=== PATIENT | male | born 1950 | race African-American/Black ===

== ENCOUNTER 2017-01-07 01:58 | Emergency (ER) | payer MEDICARE, OTHER ==
[~2017-01-07] VITALS: Ht 170.2 cm; Wt 108.4 kg
[~2017-01-07 01:58] MED LIST: ASPI325T4 PO; ATORVASTATIN CA80 MG PO; CARV25TA PO; CARV3.122 PO; CARV6.252 PO; CRESTOR5 MG PO; EZET10TA3 PO; HYDR25TA9 PO; ISOS60TA2 PO; LISI-334 PO; LISI2.5T PO; METF10002 PO; MOME17SP NS; MONT10TA6 PO; PRED20TA PO; RANO500T2 PO; WARF2.5T PO; WARF5TAB PO
--- NOTE | 2017-01-07 02:57 | PHYS DOC ---
Past Medical History Past Medical History: Asthma, CAD, Diabetes-Type II, High Cholesterol, Hypertension, Stroke, Other Additional Past Medical Histor: RIGHT SIDED RESIDUAL Past Surgical History: Knee Replacement, Other Additional Past Surgical Histo: RIGHT KNEE, cardiac stents placed Alcohol Use: None Drug Use: None Adult General Chief Complaint Chief Complaint: FOREIGNBODY EAR HPI HPI Patient is a 66 year old male who presents with concern of a bedbug in his left ear. He feels crawling in his left ear. This has been present tonight. He denies ear pain, tinnitus, headache, numbness, tingling, weakness, dizziness. Review of Systems Review of Systems Constitutional: Denies fever or chills [] Eyes: Denies change in visual acuity, redness, or eye pain [] HENT: Denies nasal congestion or sore throat [] Respiratory: Denies cough or shortness of breath [] Cardiovascular: No additional information not addressed in HPI [] GI: Denies abdominal pain, nausea, vomiting, bloody stools or diarrhea [] : Denies dysuria or hematuria [] Musculoskeletal: Denies back pain or joint pain [] Integument: Denies rash or skin lesions [] Neurologic: Denies headache, focal weakness or sensory changes [] Endocrine: Denies polyuria or polydipsia [] Current Medications Current Medications Current Medications Medications (Trade) Dose Ordered Sig/Jeannine Start Time Stop Time Status Last Admin Dose Admin Lidocaine HCl (Xylocaine-Mpf 1% Vial) 2 ml 1X ONCE 01/07/17 03:00 01/07/17 03:01 01/07/17 02:29 2 ML Allergies Allergies Allergies Coded Allergies Type Severity Reaction Last Updated Verified No Known Drug Allergies 08/10/14 No Physical Exam Physical Exam Constitutional: Well developed, well nourished, no acute distress, non-toxic appearance. [] HENT: Normocephalic, atraumatic, bilateral TMs normal, oropharynx moist, nose normal. Left ear canal has visible small brown bug [] Eyes: PERRLA, EOMI. [] Neck: Normal range of motion, supple. [] Cardiovascular:Heart rate regular rhythm [] Lungs & Thorax: Bilateral breath sounds clear to auscultation [] Abdomen: soft, no tenderness. [] Skin: Warm, dry, no erythema, no rash. [] Back: Normal range of motion. [] Extremities: ROM intact, ambulatory with a steady gait. [] Neurologic: Alert and oriented X 3, normal motor function, normal sensory function, no focal deficits noted. [] Psychologic: Affect normal, judgement normal, mood normal. [] Current Patient Data Vital Signs Vital Signs Date Time Temp Pulse Resp B/P Pulse Ox O2 Delivery O2 Flow Rate FiO2 01/07/17 02:14 97.6 86 18 99 Room Air 97.6 Course & Med Decision Making Course & Med Decision Making Foreign body removed from left ear with ease. Patient tolerated well. No bleeding or trauma occurred. Return precautions given. He understands and agrees with plan. Dragon Disclaimer Dragon Disclaimer This electronic medical record was generated, in whole or in part, using a voice recognition dictation system. Foreign Body Removal Procedure Indication: Foreign body left ear Procedure: Lidocaine was placed in the left ear canal. The foreign body was then removed with ease by alligator forceps. The patient tolerated the procedure well. Complications: none Departure Departure Impression: Primary Impression: Foreign body in left ear, initial encounter Disposition: 01 HOME, SELF-CARE Condition: STABLE Referrals: AMINATA AYALA MD (PCP) Patient Instructions: Ear Foreign Body, [id number] Additional Instructions: Follow-up with your primary care doctor. Return for any concerns. Jeri KIM MD Jan 07, 2017 02:57
[2017-01-07] MEDS ORDERED: LIDOCAINE 1% PF 2 ML VIAL. INJ ONE (03:00)
[2017-01-07 03:20] VITALS: BP 149/93
== END 2017-01-07 03:25 | disposition home or self-care (01) ==
LOC: ER 01:58
DX: T16.2XXA Foreign body in left ear, initial encounter (principal); J45.909 Unspecified asthma, uncomplicated; I25.10 Atherosclerotic heart disease of native coronary artery without angina pectoris; E11.9 Type 2 diabetes mellitus without complications; E78.00 Pure hypercholesterolemia, unspecified; I10 Essential (primary) hypertension; Z86.73 Personal history of transient ischemic attack (TIA), and cerebral infarction without residual deficits; W45.8XXA Other foreign body or object entering through skin, initial encounter; Y93.89 Activity, other specified; Y92.89 Other specified places as the place of occurrence of the external cause; Y99.8 Other external cause status
CPT/HCPCS: 69200; 99284-25

== ENCOUNTER → 2017-04-14 | Outpatient (CLI) | payer BC ==
[~2017-04-14] MED LIST changes: +CONTRAST GIVEN MC PRN; +IOHEXOL 240 MG/ML 50ML VIAL. PO ONE; +IOHEXOL 300 MG/ML 75 ML VIAL IV ONE; +METF-620 PO; -METF10002 PO; +WARF-78 PO; -WARF2.5T PO; +WARF2.5T83 PO; -WARF5TAB PO
[2017-04-14 12:10] LABS: CREATININE 1.5 mg/dL (0.7-1.3)
--- NOTE | 2017-04-14 14:06 | RAD ---
Examination: CT of the abdomen pelvis with oral and IV contrast History: History of right-sided abdominal pain for 2 month Comparison: None available Technique: Axial CT images of the abdomen is performed with oral and IV contrast Coronal and sagittal reformats were performed PQRS Compliance Statement: One or more of the following individualized dose reduction techniques were utilized for this examination: 1. Automated exposure control 2. Adjustment of the mA and/or kV according to patient size 3. Use of iterative reconstruction technique Findings: Partially visualized right lung base airspace opacities likely atelectasis or infiltrate. No evidence of free air noted under the hemidiaphragm. No evidence of free air identified in the abdomen. Partially visualized coronary artery calcifications identified. The visualized liver, spleen, adrenals grossly appears unremarkable. The gallbladder is mildly distended. The visualized pancreas grossly appears unremarkable. The stomach is minimally distended. The small bowel is nondilated. The appendix is normal. Feces and gas noted throughout the colon. Multiple sigmoid colon diverticulosis identified. Urinary bladder is mildly distended. The bilateral kidneys enhance symmetrically. Cystic structure identified in the inferior pole of the right kidney likely a cyst. Mild degenerative changes lumbar spine. Small fat and omentum containing umbilical hernia. Impression: 1. No acute abdominal findings. 2. Normal-appearing appendix. 3. Multiple sigmoid diverticulosis without diverticulitis. 4. Right renal cyst. 5. Partially visualized patchy right lung base airspace opacity likely atelectasis or infiltrate.
== END | disposition home or self-care (01) ==
LOC: CT 11:31
PROVIDERS: ATTEND Family Medicine
DX: R10.9 Unspecified abdominal pain (principal); N28.1 Cyst of kidney, acquired
CPT/HCPCS: 36415; 74177; 82565; Q9966; Q9967

== ENCOUNTER → 2017-04-30 | Outpatient (CLI) | payer BC ==
[~2017-04-30] MED LIST changes: -ASPI325T4 PO; +ASPI325T8 PO; +EZET10TA18 PO; -EZET10TA3 PO; -IOHEXOL 240 MG/ML 50ML VIAL. PO ONE
--- NOTE | 2017-04-30 10:58 | RAD ---
Indication right-sided chest pain. Axial images through the chest were obtained. 60 cc of Omnipaque 300 was administered intravenously. The examination was not tailored for the detection of pulmonary embolus. Note is made of a previous exam 08/01/2011. Imaging through the upper abdomen is unremarkable. The thoracic aorta appears unremarkable. There is no significant hilar or mediastinal adenopathy. There is some volume loss in the right lower lobe which, through the visualized area, is similar to a study 04/14/2017 (the full extent of the volume loss was not imaged on that study 2 weeks ago). Given the lack of change this probably reflects scarring. A inflammatory process, pneumonia, is not entirely excluded but again, given the lack of change, is felt somewhat less likely. (This finding is new relative to the examination 08/01/2011). Follow-up imaging in several weeks or a few months could be performed to assess for stability and/or change. Clinical correlation advised A dominant soft tissue mass in either lung is not seen. IMPRESSION: Volume loss in the right lower lobe is noted similar to an examination 2 weeks ago. Given the lack of change this probably reflects an area of scarring. An inflammatory etiology, pneumonia, is not entirely excluded. PQRS Compliance Statement: One or more of the following individualized dose reduction techniques were utilized for this examination: 1. Automated exposure control 2. Adjustment of the mA and/or kV according to patient size 3. Use of iterative reconstruction technique
== END | disposition home or self-care (01) ==
LOC: CT 08:00
PROVIDERS: ATTEND Family Medicine
DX: R93.5 Abnormal findings on diagnostic imaging of other abdominal regions, including retroperitoneum (principal); R07.9 Chest pain, unspecified
CPT/HCPCS: 71260; Q9967

== ENCOUNTER 2017-10-26 18:23 | Emergency (ER) | payer BC ==
[~2017-10-26] VITALS: Ht 170.2 cm; Wt 98.4 kg
[~2017-10-26 18:23] MED LIST changes: +AMOX1TAB11 PO; +CHLO25TA4 PO; -CONTRAST GIVEN MC PRN; +HYOS0.1264 PO; -IOHEXOL 300 MG/ML 75 ML VIAL IV ONE; +LACT1CAP19 PO; +LOPE2CAP88 PO; +METR250T PO; +ONDA4TAB11 PO; +PANT40TA5 PO; +RANO10002 PO; +WARF3TAB7 PO
[2017-10-26] MEDS ORDERED: IPRATRPIUM/ALBUTEROL 0.5/2.5MG 3 ML NEBU. NEB ONE (19:15)
[2017-10-26] MEDS ORDERED: methylPREDNISolone SOD SUCC PF 125 MG/2 ML VIAL. IV ONE (19:15)
[2017-10-26 19:34] LABS: BASO # 0.1 x10^3/uL (0.0-0.2); BASO % 1 % (0-3); EOS % 3 % (0-3); HEMOGLOBIN 10.6 g/dL (13.0-17.5); LYMPH # 1.7 x10^3/uL (1.0-4.8); LYMPH % 18 % (24-48); MEAN CORPUSCULAR HEMOGLOBIN 31 pg (25-35); MEAN CORPUSCULAR HGB CONC 33 g/dL (31-37); MEAN CORPUSCULAR VOLUME 92 fL (79-100); MONO % 14 % (0-9); NEUT % 64 % (31-73); PLATELET COUNT 180 x10^3/uL (140-400); RED BLOOD COUNT 3.49 x10^6/uL (4.30-5.70); RED CELL DISTRIBUTION WIDTH 17.4 % (11.5-14.5); WHITE BLOOD COUNT 9.1 x10^3/uL (4.0-11.0)
[2017-10-26 19:54] LABS: CALCIUM 8.4 mg/dL (8.5-10.1); GFR 90.7; POTASSIUM 4.4 mmol/L (3.5-5.1)
[2017-10-26 20:02] LABS: ALBUMIN 3.1 g/dL (3.4-5.0); TOTAL BILIRUBIN 1.6 mg/dL (0.2-1.0); TOTAL PROTEIN 6.2 g/dL (6.4-8.2)
--- NOTE | 2017-10-26 20:05 | PHYS DOC ---
Past Medical History Past Medical History: Asthma, CAD, Diabetes-Type II, High Cholesterol, Hypertension, Stroke, Other Additional Past Medical Histor: RIGHT SIDED RESIDUAL Past Surgical History: Knee Replacement, Other Additional Past Surgical Histo: RIGHT KNEE, cardiac stents placed Alcohol Use: None Drug Use: None Adult General Chief Complaint Chief Complaint: SHORTNESS OF BREATH HPI HPI Patient is a 67 year old male who presents with complaint shortness of breath. Patient states his symptoms have been worsening since yesterday. Patient has history of asthma and states that he is having worsening symptoms related to asthma including wheezing and difficulty breathing. Patient states that he has had mildly productive cough but states it has been clear sputum. Patient denies any known fevers and has not had any chest pain or abdominal pain associated with symptoms. Patient states that he has taken nebulized treatments at home with no relief in symptoms. Symptoms worsen with exertion and mildly improved with rest. Patient not currently on any antibiotics or prednisone. Review of Systems Review of Systems Constitutional: Denies fever or chills [] Eyes: Denies change in visual acuity, redness, or eye pain [] HENT: Denies nasal congestion or sore throat [] Respiratory: Shortness of breath, wheezing, productive cough[] Cardiovascular: Denies chest pain or edema[] GI: Denies abdominal pain, nausea, vomiting, bloody stools or diarrhea [] : Denies dysuria or hematuria [] Musculoskeletal: Denies back pain or joint pain [] Integument: Denies rash or skin lesions [] Neurologic: Denies headache, focal weakness or sensory changes [] All other systems were reviewed and found to be within normal limits, except as documented in this note. Current Medications Current Medications Current Medications Medications (Trade) Dose Ordered Sig/Jeannine Start Time Stop Time Status Last Admin Dose Admin Albuterol/ Ipratropium (Duoneb) 6 ml 1X ONCE 10/26/17 19:15 10/26/17 19:16 DC 10/26/17 19:31 6 ML Methylprednisolone Sodium Succinate (SOLU-Medrol 125MG VIAL) 125 mg 1X ONCE 10/26/17 19:15 10/26/17 19:16 DC 10/26/17 19:15 125 MG Allergies Allergies Allergies Coded Allergies Type Severity Reaction Last Updated Verified No Known Drug Allergies 08/10/14 No Physical Exam Physical Exam Constitutional: Alert, afebrile, appears in mild to moderate respiratory distress. [] HENT: Normocephalic, atraumatic, bilateral external ears normal, oropharynx moist, no oral exudates, nose normal. [] Eyes: PERRLA, EOMI, conjunctiva normal, no discharge. [] Neck: Normal range of motion, no tenderness, supple, no stridor. [] Cardiovascular:Heart rate regular rhythm, no murmur [] Lungs & Thorax: Prolonged expiratory phase, expiratory wheezes bilaterally, moderately restricted air movement bilaterally[] Abdomen: Bowel sounds normal, soft, no tenderness, no masses, no pulsatile masses. [] Skin: Warm, dry, no erythema, no rash. [] Back: No tenderness, no CVA tenderness. [] Extremities: No tenderness, no cyanosis, no clubbing, ROM intact, no edema. [] Neurologic: Alert and oriented X 3, chronic right hemiplegia, normal motor function in left upper and lower extremity. [] Current Patient Data Vital Signs Vital Signs Date Time Temp Pulse Resp B/P (MAP) Pulse Ox O2 Delivery O2 Flow Rate FiO2 10/26/17 19:31 96 Room Air 10/26/17 18:55 98.0 81 25 168/101 (123) 98.0 Lab Values Laboratory Tests Test 10/26/17 19:23 10/26/17 19:44 White Blood Count 9.1 x10^3/uL (4.0-11.0) Red Blood Count 3.49 x10^6/uL (4.30-5.70) L Hemoglobin 10.6 g/dL (13.0-17.5) L Hematocrit 32.0 % (39.0-53.0) L Mean Corpuscular Volume 92 fL (79-100) Mean Corpuscular Hemoglobin 31 pg (25-35) Mean Corpuscular Hemoglobin Concent 33 g/dL (31-37) Red Cell Distribution Width 17.4 % (11.5-14.5) H Platelet Count 180 x10^3/uL (140-400) Neutrophils (%) (Auto) 64 % (31-73) Lymphocytes (%) (Auto) 18 % (24-48) L Monocytes (%) (Auto) 14 % (0-9) H Eosinophils (%) (Auto) 3 % (0-3) Basophils (%) (Auto) 1 % (0-3) Neutrophils # (Auto) 5.8 x10^3uL (1.8-7.7) Lymphocytes # (Auto) 1.7 x10^3/uL (1.0-4.8) Monocytes # (Auto) 1.2 x10^3/uL (0.0-1.1) H Eosinophils # (Auto) 0.3 x10^3/uL (0.0-0.7) Basophils # (Auto) 0.1 x10^3/uL (0.0-0.2) Sodium Level 139 mmol/L (136-145) Potassium Level 4.4 mmol/L (3.5-5.1) Chloride Level 107 mmol/L (98-107) Carbon Dioxide Level 26 mmol/L (21-32) Anion Gap 6 (6-14) Blood Urea Nitrogen 15 mg/dL (8-26) Creatinine 1.0 mg/dL (0.7-1.3) Estimated GFR (Cockcroft-Gault) 90.7 BUN/Creatinine Ratio 15 (6-20) Glucose Level 89 mg/dL (70-99) Calcium Level 8.4 mg/dL (8.5-10.1) L Total Bilirubin 1.6 mg/dL (0.2-1.0) H Aspartate Amino Transferase (AST) 17 U/L (15-37) Alanine Aminotransferase (ALT) 27 U/L (16-63) Alkaline Phosphatase 49 U/L (46-116) Creatine Kinase 89 U/L (39-308) Creatine Kinase MB (Mass) < 0.5 ng/mL (0.0-3.6) Creatine Kinase MB Relative Index 0.6 % (0-4) Troponin I Quantitative < 0.017 ng/mL (0.000-0.055) JV-Rsw-Y-Type Natriuretic Peptide 591 pg/mL (0-124) H Total Protein 6.2 g/dL (6.4-8.2) L Albumin 3.1 g/dL (3.4-5.0) L Albumin/Globulin Ratio 1.0 (1.0-1.7) Influenza Type A Antigen Negative (NEGATIVE) Influenza Type B Antigen Negative (NEGATIVE) Laboratory Tests 10/26/17 19:23 Laboratory Tests 10/26/17 19:23 EKG EKG Interpreted by me: Heart rate 78, sinus rhythm, prolonged QT interval, normal axis, no acute ST/T-wave abnormalities present[] Radiology/Procedures Radiology/Procedures One view AP chest x-ray interpreted by me: No infiltrate, no effusions, normal cardiac silhouette[] Course & Med Decision Making Course & Med Decision Making Pertinent Labs and Imaging studies reviewed. (See chart for details) Patient was given IV Solu-Medrol and 2 DuoNeb breathing treatments in the emergency department. The patient's chest x-ray shows no evidence of acute pneumonia. Patient does not have an elevated white count and is afebrile. On reevaluation, the patient states he feels much better at this time and would like to go home. I feel the patient is appropriate for outpatient treatment. The patient will continue on prednisone taper and advised to use albuterol inhaler 2-4 puffs every 4 hours or to use his nebulizer with 1-2 unit doses of albuterol every 4 hours as needed for wheezing symptoms. Advised return to the emergency department for any worsening symptoms. Recommended follow-up with primary doctor in 2-3 days for reevaluation. Patient voiced understanding and was in agreement with treatment plan at discharge. Dragon Disclaimer Dragon Disclaimer This electronic medical record was generated, in whole or in part, using a voice recognition dictation system. Departure Departure Impression: Primary Impression: Acute asthma exacerbation Disposition: 01 HOME, SELF-CARE Condition: IMPROVED Referrals: AMINATA AYALA MD (PCP) Patient Instructions: Asthma, Adult Additional Instructions: Follow-up with your primary doctor in the next 2-3 days for reevaluation. You may use your albuterol inhaler 2-4 puffs every 4 hours or your nebulizer machine 1-2 unit doses every 4 hours as needed for shortness of breath. Return to the emergency department for any worsening symptoms. Scripts Prednisone (PREDNISONE) 10 Mg Tablet 10 MG PO UD for PREDNISONE TAPER, #39 TAB 0 Refills Take 3 tablets by mouth twice a day for 3 days, then take 2 tablets by mouth twice a day for 3 days, then take 1 tablet by mouth twice a day for 3 days, then take 1 tablet by mouth daily x 3 days, then stop. Prov: DARYL VARMA MD 10/26/17 Problem Qualifiers Primary Impression: Acute asthma exacerbation Asthma severity: moderate Asthma persistence: persistent Qualified Codes: J45.41 - Moderate persistent asthma with (acute) exacerbation DARYL VARMA MD Oct 26, 2017 20:05
[2017-10-26 20:10] LABS: OBC FLU VALID
[2017-10-26 20:12] LABS: CKMB MASS < 0.5 ng/mL (0.0-3.6); CREATINE KINASE 89 U/L (39-308)
[2017-10-26] MEDS ORDERED: PRED-220 PO (21:09)
[2017-10-26 21:34] VITALS: BP 166/99
--- NOTE | 2017-10-27 00:55 | EKG ---
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
--- NOTE | 2017-10-27 07:59 | RAD ---
Chest x-ray Indication: Shortness of breath Technique: Portable AP upright chest x-ray Comparison: Previous CT chest from 10/06/2017 Findings: Heart is normal in size. Lungs are clear. No pneumothorax or pleural effusion. Visualized bony thorax is within normal limits. Impression: No acute cardiopulmonary process.
== END 2017-10-26 21:36 | disposition home or self-care (01) ==
LOC: ER 18:23
DX: J45.901 Unspecified asthma with (acute) exacerbation (principal); I25.10 Atherosclerotic heart disease of native coronary artery without angina pectoris; E11.9 Type 2 diabetes mellitus without complications; E78.00 Pure hypercholesterolemia, unspecified; I10 Essential (primary) hypertension; Z86.73 Personal history of transient ischemic attack (TIA), and cerebral infarction without residual deficits; Z95.5 Presence of coronary angioplasty implant and graft; Z79.899 Other long term (current) drug therapy
CPT/HCPCS: 36415; 71010; 80053; 82553; 83880; 84484; 85025; 87804; 93005; 94250; 94640; 96374; 99285; J2930; J7620

== ENCOUNTER → 2017-12-22 | Outpatient (CLI) | payer BC ==
[2017-12-22] MEDS: OXYMETAZOLINE 0.05% NASAL SPRAY 30ML BOTTLE. NS (22:30)
[2017-12-22] MEDS: ZOLPIDEM 5 MG TABLET. PO (22:30)
== END | disposition home or self-care (01) ==
LOC: SLPLAB 18:20
DX: G47.33 Obstructive sleep apnea (adult) (pediatric) (principal)
CPT/HCPCS: 95810

== ENCOUNTER → 2018-02-19 | Day surgery (SDC) | payer BC ==
[~2018-02-19] MED LIST changes: -AMOX1TAB11 PO; -ASPI325T8 PO; -ATORVASTATIN CA80 MG PO; -CARV25TA PO; -CARV3.122 PO; -CARV6.252 PO; -CHLO25TA4 PO; -CRESTOR5 MG PO; -EZET10TA18 PO; -HYDR25TA9 PO; -HYOS0.1264 PO; -ISOS60TA2 PO; -LACT1CAP19 PO; +LIDOCAINE 1% PF 2 ML VIAL.; +LIDOCAINE 1% PF 2 ML VIAL. ID; -LISI-334 PO; -LISI2.5T PO; -LOPE2CAP88 PO; -METF-620 PO; -METR250T PO; +MIDAZOLAM HCL/PF 2 MG/2 ML VIAL. IV; -MOME17SP NS; -MONT10TA6 PO; -ONDA4TAB11 PO; -PANT40TA5 PO; -PRED20TA PO; +PROPOFOL 40 ML IV; -RANO10002 PO; -RANO500T2 PO; -WARF-78 PO; -WARF2.5T83 PO; -WARF3TAB7 PO; +fentaNYL PF VIAL 100 MCG/2 ML VIAL IV
[2018-02-19] MEDS: IV RINGERS,LACTATED 1000ML 1,000 ML IV (06:30)
== END | disposition home or self-care (01) ==
LOC: ENDOS 09:26
DX: K29.50 Unspecified chronic gastritis without bleeding (principal); K57.30 Diverticulosis of large intestine without perforation or abscess without bleeding; K64.8 Other hemorrhoids; J45.909 Unspecified asthma, uncomplicated; E78.00 Pure hypercholesterolemia, unspecified; I10 Essential (primary) hypertension; Z95.5 Presence of coronary angioplasty implant and graft; Z72.89 Other problems related to lifestyle; Z87.891 Personal history of nicotine dependence; Z79.82 Long term (current) use of aspirin; Z79.899 Other long term (current) drug therapy
CPT/HCPCS: 43235; J2704

== ENCOUNTER → 2018-03-02 | Outpatient (CLI) | payer BC ==
[~2018-03-02] MED LIST changes: +CONTRAST GIVEN MC; -LIDOCAINE 1% PF 2 ML VIAL.; -LIDOCAINE 1% PF 2 ML VIAL. ID; -MIDAZOLAM HCL/PF 2 MG/2 ML VIAL. IV; -PROPOFOL 40 ML IV; -fentaNYL PF VIAL 100 MCG/2 ML VIAL IV
[2018-03-02] MEDS: IOHEXOL 300 MG/ML 100ML VIAL. IV (13:05)
[2018-03-02] MEDS: IOHEXOL 240 MG/ML 50ML VIAL. PO (13:05)
== END | disposition home or self-care (01) ==
LOC: CT 11:43
DX: K57.30 Diverticulosis of large intestine without perforation or abscess without bleeding (principal); K42.9 Umbilical hernia without obstruction or gangrene; N28.89 Other specified disorders of kidney and ureter; I70.0 Atherosclerosis of aorta
CPT/HCPCS: 74177; Q9966; Q9967

== ENCOUNTER 2019-06-07 07:22 | Emergency (ER) | payer BC, OTHER ==
[~2019-06-07] VITALS: Ht 170.2 cm; Wt 97.5 kg
[~2019-06-07 07:22] MED LIST changes: +ALBU2.5V8 INH; +AMOX1TAB11 PO; +ASPI325T8 PO; +ATORVASTATIN CA80 MG PO; +CARV25TA PO; +CARV3.1210 PO; +CARV6.2511 PO; +CHLO25TA4 PO; -CONTRAST GIVEN MC; +CRESTOR5 MG PO; +EZET10TA18 PO; +HYDR-2145 PO; +HYOS0.1264 PO; +ISOS60TA2 PO; +LACT1CAP19 PO; +LISI-334 PO; +LISI2.5T PO; +LOPE2CAP88 PO; +METF10007 PO; +METR250T PO; +MOME13HF IH; +MOME17SP NS; +MONT10TA49 PO; +OMEP40CA5 PO; +ONDA4TAB11 PO; +PANT40TA77 PO; +PRED-220 PO; +PRED20TA PO; +RANO10002 PO; +RANO500T2 PO; +ROPI0.5T PO; +TAMS0.4C97 PO; +TIOT18CA IH; +WARF-78 PO; +WARF2.5T83 PO; +WARF3TAB50 PO
[2019-06-07] MEDS ORDERED: IPRATRPIUM/ALBUTEROL 0.5/2.5MG 3 ML NEBU. NEB ONE (07:45)
[2019-06-07 07:54] LABS: BASO # 0.1 x10^3/uL (0.0-0.2); BASO % 1 % (0-3); EOS # 0.2 x10^3/uL (0.0-0.7); EOS % 3 % (0-3); HEMATOCRIT 34.3 % (39.0-53.0); HEMOGLOBIN 11.1 g/dL (13.0-17.5); LYMPH # 1.7 x10^3/uL (1.0-4.8); LYMPH % 29 % (24-48); MEAN CORPUSCULAR HEMOGLOBIN 29 pg (25-35); MEAN CORPUSCULAR HGB CONC 32 g/dL (31-37); MEAN CORPUSCULAR VOLUME 88 fL (79-100); MONO # 0.9 x10^3/uL (0.0-1.1); MONO % 15 % (0-9); NEUT # 3.1 x10^3uL (1.8-7.7); NEUT % 53 % (31-73); PLATELET COUNT 216 x10^3/uL (140-400); RED BLOOD COUNT 3.89 x10^6/uL (4.30-5.70); RED CELL DISTRIBUTION WIDTH 15.5 % (11.5-14.5); WHITE BLOOD COUNT 5.9 x10^3/uL (4.0-11.0)
--- NOTE | 2019-06-07 07:57 | RAD ---
CHEST AP ONLY Clinical Indication: Shortness of breath the past 2 days which has worsened Comparison: 11/10/2018 portable chest x-ray exam. Findings: Portable upright frontal view chest was obtained. The cardiomediastinal silhouette is normal. Lungs are clear. There is no pneumothorax. No pleural effusion is appreciated. No acute bone abnormality. IMPRESSION: No acute cardiopulmonary process. Electronically signed by: Niko Strickland MD (06/07/2019 7:54 AM) [facility]
[2019-06-07 08:09] LABS: CALCIUM 9.4 mg/dL (8.5-10.1); CREATININE 1.1 mg/dL (0.7-1.3)
[2019-06-07 08:15] LABS: ALBUMIN 3.6 g/dL (3.4-5.0); ALBUMIN/GLOBULIN RATIO 0.9 (1.0-1.7); TOTAL BILIRUBIN 0.9 mg/dL (0.2-1.0); TOTAL PROTEIN 7.7 g/dL (6.4-8.2)
[2019-06-07] MEDS ORDERED: LABETALOL 20 MG/4 ML DISP.SYRIN. IVP ONE (08:30)
--- NOTE | 2019-06-07 09:09 | EKG ---
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
[2019-06-07 09:13] LABS: PROTHROMBIN TIME PATIENT 16.6 SEC (11.7-14.0)
--- NOTE | 2019-06-07 09:24 | PHYS DOC ---
Past Medical History Past Medical History: Asthma, CAD, Diabetes-Type II, High Cholesterol, Hypertension, Stroke, Other Additional Past Medical Histor: RIGHT SIDED RESIDUAL Past Surgical History: Knee Replacement, Other Additional Past Surgical Histo: RIGHT KNEE, cardiac stents placed Alcohol Use: None Drug Use: None Adult General Chief Complaint Chief Complaint: SHORTNESS OF BREATH HPI HPI Patient is a 68 year old -[place] male with history of asthma, COPD presents with shortness breath and wheezing along with increased inhaler/nebulizer use. Symptoms began 2 days ago. Patient reports wheezing with exertion and dyspnea while at rest. Denies chest pain chest tightness, nausea sweats or other anginal equivalent. No leg pain or swelling. No history of DVT or PE. His blood pressure noted be elevated 170s over 100s. States his blood pressure is normally much better controlled and that he is compliant with medications. Patient is a nonsmoker. [] Review of Systems Review of Systems ROS as per HPI All other systems were reviewed and found to be within normal limits, except as documented in this note. Current Medications Current Medications Current Medications Medications (Trade) Dose Ordered Sig/Jeannine Start Time Stop Time Status Last Admin Dose Admin Albuterol Sulfate (Ventolin Neb Soln) 2.5 mg 1X ONCE 06/07/19 09:45 06/07/19 09:46 DC 06/07/19 09:55 2.5 MG Albuterol/ Ipratropium (Duoneb) 3 ml 1X ONCE 06/07/19 07:45 06/07/19 07:46 DC 06/07/19 07:53 3 ML Clonidine HCl (Catapres) 0.1 mg 1X ONCE 06/07/19 09:30 06/07/19 09:31 DC 06/07/19 09:24 0.1 MG Labetalol HCl (Normodyne Iv Push) 20 mg 1X ONCE 06/07/19 08:30 06/07/19 08:31 DC 06/07/19 08:47 20 MG Methylprednisolone Sodium Succinate (SOLU-Medrol 125MG VIAL) 125 mg 1X ONCE 06/07/19 09:30 06/07/19 09:31 DC 06/07/19 09:30 125 MG Allergies Allergies Allergies Coded Allergies Type Severity Reaction Last Updated Verified No Known Drug Allergies 11/10/18 No Physical Exam Physical Exam Constitutional: Well developed, well nourished, no acute distress, non-toxic appearance. [] HENT: Normocephalic, atraumatic, bilateral external ears normal, oropharynx moist, no oral exudates, nose normal. [] Eyes: PERRLA, EOMI, conjunctiva normal, no discharge. [] Neck: Normal range of motion, no tenderness, supple, no stridor. [] Cardiovascular:Heart rate regular rhythm, no murmur, trace edema [] Lungs & Thorax: Respirations nonlabored, inspiratory next 3 wheezes bilaterally, no rales.[] Abdomen: Bowel sounds normal, soft, no tenderness. [] Skin: Warm, dry, no erythema, no rash. [] Back: No tenderness, no CVA tenderness. [] Extremities: No tenderness, no cyanosis, no clubbing, ROM intact, no edema. [] Neurologic: Alert and oriented X 3, normal motor function, normal sensory function, no focal deficits noted. [] Psychologic: Affect normal, judgement normal, mood normal. [] Current Patient Data Vital Signs Vital Signs Date Time Temp Pulse Resp B/P (MAP) Pulse Ox O2 Delivery O2 Flow Rate FiO2 06/07/19 09:56 98 Room Air 06/07/19 09:24 75 165/106 06/07/19 07:59 20 06/07/19 07:25 98.5 98.5 Lab Values Laboratory Tests Test 06/07/19 07:40 White Blood Count 5.9 x10^3/uL (4.0-11.0) Red Blood Count 3.89 x10^6/uL (4.30-5.70) L Hemoglobin 11.1 g/dL (13.0-17.5) L Hematocrit 34.3 % (39.0-53.0) L Mean Corpuscular Volume 88 fL (79-100) Mean Corpuscular Hemoglobin 29 pg (25-35) Mean Corpuscular Hemoglobin Concent 32 g/dL (31-37) Red Cell Distribution Width 15.5 % (11.5-14.5) H Platelet Count 216 x10^3/uL (140-400) Neutrophils (%) (Auto) 53 % (31-73) Lymphocytes (%) (Auto) 29 % (24-48) Monocytes (%) (Auto) 15 % (0-9) H Eosinophils (%) (Auto) 3 % (0-3) Basophils (%) (Auto) 1 % (0-3) Neutrophils # (Auto) 3.1 x10^3uL (1.8-7.7) Lymphocytes # (Auto) 1.7 x10^3/uL (1.0-4.8) Monocytes # (Auto) 0.9 x10^3/uL (0.0-1.1) Eosinophils # (Auto) 0.2 x10^3/uL (0.0-0.7) Basophils # (Auto) 0.1 x10^3/uL (0.0-0.2) Prothrombin Time 16.6 SEC (11.7-14.0) H Prothrombin Time INR 1.4 (0.8-1.1) H Sodium Level 140 mmol/L (136-145) Potassium Level 4.0 mmol/L (3.5-5.1) Chloride Level 106 mmol/L (98-107) Carbon Dioxide Level 26 mmol/L (21-32) Anion Gap 8 (6-14) Blood Urea Nitrogen 15 mg/dL (8-26) Creatinine 1.1 mg/dL (0.7-1.3) Estimated GFR (Cockcroft-Gault) 81.0 BUN/Creatinine Ratio 14 (6-20) Glucose Level 98 mg/dL (70-99) Calcium Level 9.4 mg/dL (8.5-10.1) Total Bilirubin 0.9 mg/dL (0.2-1.0) Aspartate Amino Transferase (AST) 35 U/L (15-37) Alanine Aminotransferase (ALT) 41 U/L (16-63) Alkaline Phosphatase 68 U/L (46-116) Troponin I Quantitative < 0.017 ng/mL (0.000-0.055) OD-Xpo-N-Type Natriuretic Peptide 59 pg/mL (0-124) Total Protein 7.7 g/dL (6.4-8.2) Albumin 3.6 g/dL (3.4-5.0) Albumin/Globulin Ratio 0.9 (1.0-1.7) L Laboratory Tests 06/07/19 07:40 Laboratory Tests 06/07/19 07:40 EKG EKG [EKG: NSR] Radiology/Procedures Radiology/Procedures [Chest x-ray: No acute cardiopulmonary disease on preliminary ED review] Course & Med Decision Making Course & Med Decision Making Pertinent Labs and Imaging studies reviewed. (See chart for details) [Repeat breathing treatments, steroids and blood pressure medication given. Symptoms significantly improved. Patient resting comfortably with clear breath sounds on reexamination. We'll continue supportive care with PCP follow-up. Return precautions reviewed] Dragon Disclaimer Dragon Disclaimer This electronic medical record was generated, in whole or in part, using a voice recognition dictation system. Departure Departure Impression: Primary Impression: Acute asthma exacerbation Disposition: HOME, SELF-CARE Condition: GOOD Referrals: AMINATA AYALA MD (PCP) Patient Instructions: Asthma, Adult, [id number], Hypertension Additional Instructions: Please take steroids as directed and continue home nebulizer/inhaler use. Take blood pressure medication upon returning home. Follow-up with your PCP in 2-3 days for reevaluation if symptoms persist. Return to the ED if new or worsening symptoms Scripts Prednisone (PREDNISONE) 50 Mg Tablet 1 TAB PO DAILY, #5 TAB Prov: ALLY ESCALANTE DO 06/07/19 ALLY ESCALANTE DO Jun 07, 2019 09:24
[2019-06-07] MEDS ORDERED: cloNIDine HCL 0.1 MG TABLET PO ONE (09:30)
[2019-06-07] MEDS ORDERED: methylPREDNISolone SOD SUCC PF 125 MG/2 ML VIAL. IV ONE (09:30)
[2019-06-07] MEDS ORDERED: ALBUTEROL SULFATE 2.5 MG/3 ML NEBU. NEB ONE (09:45)
[2019-06-07 09:59] VITALS: BP 144/90
[2019-06-07] MEDS ORDERED: PRED50TA PO (10:14)
== END 2019-06-07 10:19 | disposition home or self-care (01) ==
LOC: ER 07:22
DX: J44.9 Chronic obstructive pulmonary disease, unspecified (principal); J45.901 Unspecified asthma with (acute) exacerbation; I10 Essential (primary) hypertension; E11.9 Type 2 diabetes mellitus without complications; E78.00 Pure hypercholesterolemia, unspecified; I25.10 Atherosclerotic heart disease of native coronary artery without angina pectoris; Z86.73 Personal history of transient ischemic attack (TIA), and cerebral infarction without residual deficits; Z95.5 Presence of coronary angioplasty implant and graft
CPT/HCPCS: 36415; 71045; 80053; 83880; 84484; 85025; 85610; 93005; 94640; 96374; 96375; 99285; J2930; J3490; J7613; J7620

== ENCOUNTER → 2019-07-27 | Outpatient (CLI) | payer OTHER ==
[~2019-07-27] MED LIST changes: +PRED50TA PO
[2019-07-27 11:36] LABS: BASO # 0.1 x10^3/uL (0.0-0.2); BASO % 1 % (0-3); EOS # 0.2 x10^3/uL (0.0-0.7); EOS % 3 % (0-3); HEMATOCRIT 34.1 % (39.0-53.0); HEMOGLOBIN 11.1 g/dL (13.0-17.5); LYMPH # 1.8 x10^3/uL (1.0-4.8); LYMPH % 29 % (24-48); MEAN CORPUSCULAR HEMOGLOBIN 27 pg (25-35); MEAN CORPUSCULAR HGB CONC 33 g/dL (31-37); MEAN CORPUSCULAR VOLUME 84 fL (79-100); MONO # 0.8 x10^3/uL (0.0-1.1); MONO % 14 % (0-9); NEUT # 3.2 x10^3/uL (1.8-7.7); NEUT % 53 % (31-73); PLATELET COUNT 179 x10^3/uL (140-400); RED BLOOD COUNT 4.04 x10^6/uL (4.30-5.70); RED CELL DISTRIBUTION WIDTH 16.7 % (11.5-14.5); WHITE BLOOD COUNT 6.1 x10^3/uL (4.0-11.0)
== END | disposition home or self-care (01) ==
LOC: LAB 10:57
PROVIDERS: ATTEND Internal Medicine Critical Care Medicine
DX: J45.909 Unspecified asthma, uncomplicated (principal)
CPT/HCPCS: 36415; 82784; 85025

== ENCOUNTER 2019-09-03 08:56 | Emergency (ER) | payer OTHER ==
[~2019-09-03] VITALS: Ht 170.2 cm; Wt 97.1 kg
[~2019-09-03 08:56] MED LIST changes: -EZET10TA18 PO; +EZET10TA20 PO; +LOPE-101 PO; -LOPE2CAP88 PO; +OMEP40CA45 PO; -OMEP40CA5 PO
[2019-09-03] MEDS ORDERED: methylPREDNISolone SOD SUCC PF 125 MG/2 ML VIAL. IV ONE (09:15)
[2019-09-03] MEDS ORDERED: IPRATRPIUM/ALBUTEROL 0.5/2.5MG 3 ML NEBU. NEB ONE (09:15)
[2019-09-03 09:34] LABS: BASO # 0.1 x10^3/uL (0.0-0.2); BASO % 1 % (0-3); EOS # 0.1 x10^3/uL (0.0-0.7); EOS % 2 % (0-3); HEMOGLOBIN 11.4 g/dL (13.0-17.5); LYMPH # 1.6 x10^3/uL (1.0-4.8); LYMPH % 22 % (24-48); MEAN CORPUSCULAR HEMOGLOBIN 28 pg (25-35); MEAN CORPUSCULAR HGB CONC 34 g/dL (31-37); MEAN CORPUSCULAR VOLUME 83 fL (79-100); MONO # 0.9 x10^3/uL (0.0-1.1); MONO % 13 % (0-9); NEUT # 4.4 x10^3/uL (1.8-7.7); NEUT % 62 % (31-73); PLATELET COUNT 174 x10^3/uL (140-400); RED BLOOD COUNT 4.12 x10^6/uL (4.30-5.70); RED CELL DISTRIBUTION WIDTH 18.1 % (11.5-14.5); WHITE BLOOD COUNT 7.2 x10^3/uL (4.0-11.0)
--- NOTE | 2019-09-03 09:43 | RAD ---
CHEST PA LATERAL History: Shortness of breath. History of asthma. Comparison: June 07, 2019 Findings: New right midlung nodular opacity measures 2.5 x 1.6 cm. No pleural effusion. Unchanged heart size. No pneumothorax. Impression: 1. New nodular opacity within the right midlung. Recommend CT to further evaluate. Electronically signed by: Jori Barrera DO (09/03/2019 9:40 AM) [facility]
[2019-09-03 10:26] LABS: ALBUMIN 3.3 g/dL (3.4-5.0); ALBUMIN/GLOBULIN RATIO 0.9 (1.0-1.7); CALCIUM 9.1 mg/dL (8.5-10.1); CREATININE 1.1 mg/dL (0.7-1.3); GFR 80.8; TOTAL PROTEIN 7.1 g/dL (6.4-8.2)
[2019-09-03] MEDS ORDERED: IOHEXOL 300 MG/ML 100ML VIAL. IV ONE (10:45)
--- NOTE | 2019-09-03 10:53 | PHYS DOC ---
Past Medical History Past Medical History: Asthma, CAD, COPD, CVA, Diabetes-Type II, High Cholesterol, Hypertension, Stroke, Other Additional Past Medical Histor: RIGHT SIDED RESIDUAL Past Surgical History: Angioplasty, Knee Replacement, Other Additional Past Surgical Histo: cardiac stents Smoking: Second-hand Alcohol Use: None Drug Use: None Adult General Chief Complaint Chief Complaint: ASTHMA HPI HPI Patient is a 69 year old male with history of asthma who presents with complaining of asthma. Patient complaining of shortness of breath and productive cough with white and yellow sputum since last night that did not get better with several treatment with nebulizer and inhaler at home. Denies chest pain, fever and chills, sick contact, nausea and vomiting, abdominal pain. Patient denies a smoking but states his smokes at home. Review of Systems Review of Systems Constitutional: Denies fever or chills [] Eyes: Denies change in visual acuity, redness, or eye pain [] HENT: Denies nasal congestion or sore throat [] Respiratory: Reports cough and shortness of breath Cardiovascular: No additional information not addressed in HPI [] GI: Denies abdominal pain, nausea, vomiting, bloody stools or diarrhea [] : Denies dysuria or hematuria [] Musculoskeletal: Denies back pain or joint pain [] Integument: Denies rash or skin lesions [] Neurologic: Denies headache, focal weakness or sensory changes [] Endocrine: Denies polyuria or polydipsia [] All other systems were reviewed and found to be within normal limits, except as documented in this note. Current Medications Current Medications Current Medications Medications (Trade) Dose Ordered Sig/Jeannine Start Time Stop Time Status Last Admin Dose Admin Albuterol/ Ipratropium (Duoneb) 3 ml 1X ONCE 09/03/19 09:15 09/03/19 09:23 DC 09/03/19 09:33 3 ML Clonidine HCl (Catapres) 0.2 mg 1X ONCE 09/03/19 12:00 09/03/19 12:03 DC 09/03/19 12:11 0.2 MG Info (CONTRAST GIVEN -- Rx MONITORING) 1 each PRN DAILY PRN 09/03/19 11:00 09/03/19 12:56 DC Iohexol (Omnipaque 300 Mg/ml) 75 ml 1X ONCE 09/03/19 10:45 09/03/19 10:46 DC 09/03/19 11:09 75 ML Methylprednisolone Sodium Succinate (SOLU-Medrol 125MG VIAL) 125 mg 1X ONCE 09/03/19 09:15 09/03/19 09:23 DC 09/03/19 09:37 125 MG Allergies Allergies Allergies Coded Allergies Type Severity Reaction Last Updated Verified No Known Drug Allergies 11/10/18 No Physical Exam Physical Exam Constitutional: Well developed, well nourished, mild distress, non-toxic appearance. [] HENT: Normocephalic, atraumatic, bilateral external ears normal, oropharynx moist, no oral exudates, nose normal. [] Eyes: PERRLA, EOMI, conjunctiva normal, no discharge. [] Neck: Normal range of motion, no tenderness, supple, no stridor. [] Cardiovascular:Heart rate regular rhythm, no murmur [] Lungs & Thorax: Mild respiratory distress with intercostal dissection, diffuse wheezing and rhonchi. Abdomen: Bowel sounds normal, soft, no tenderness, no masses, no pulsatile masses. [] Skin: Warm, dry, no erythema, no rash. [] Back: No tenderness, no CVA tenderness. [] Extremities: No tenderness, no cyanosis, no clubbing, ROM intact, no edema. [] Neurologic: Alert and oriented X 3, normal motor function, normal sensory function, no focal deficits noted. [] Psychologic: Affect normal, judgement normal, mood normal. [] Current Patient Data Vital Signs Vital Signs Date Time Temp Pulse Resp B/P (MAP) Pulse Ox O2 Delivery O2 Flow Rate FiO2 09/03/19 12:34 82 21 159/97 (117) 96 Room Air 09/03/19 09:01 97.7 97.7 Lab Values Laboratory Tests Test 09/03/19 09:30 09/03/19 10:00 White Blood Count 7.2 x10^3/uL (4.0-11.0) Red Blood Count 4.12 x10^6/uL (4.30-5.70) L Hemoglobin 11.4 g/dL (13.0-17.5) L Hematocrit 34.0 % (39.0-53.0) L Mean Corpuscular Volume 83 fL (79-100) Mean Corpuscular Hemoglobin 28 pg (25-35) Mean Corpuscular Hemoglobin Concent 34 g/dL (31-37) Red Cell Distribution Width 18.1 % (11.5-14.5) H Platelet Count 174 x10^3/uL (140-400) Neutrophils (%) (Auto) 62 % (31-73) Lymphocytes (%) (Auto) 22 % (24-48) L Monocytes (%) (Auto) 13 % (0-9) H Eosinophils (%) (Auto) 2 % (0-3) Basophils (%) (Auto) 1 % (0-3) Neutrophils # (Auto) 4.4 x10^3/uL (1.8-7.7) Lymphocytes # (Auto) 1.6 x10^3/uL (1.0-4.8) Monocytes # (Auto) 0.9 x10^3/uL (0.0-1.1) Eosinophils # (Auto) 0.1 x10^3/uL (0.0-0.7) Basophils # (Auto) 0.1 x10^3/uL (0.0-0.2) Sodium Level 142 mmol/L (136-145) Potassium Level 4.0 mmol/L (3.5-5.1) Chloride Level 106 mmol/L (98-107) Carbon Dioxide Level 28 mmol/L (21-32) Anion Gap 8 (6-14) Blood Urea Nitrogen 15 mg/dL (8-26) Creatinine 1.1 mg/dL (0.7-1.3) Estimated GFR (Cockcroft-Gault) 80.8 BUN/Creatinine Ratio 14 (6-20) Glucose Level 92 mg/dL (70-99) Calcium Level 9.1 mg/dL (8.5-10.1) Total Bilirubin 1.0 mg/dL (0.2-1.0) Aspartate Amino Transferase (AST) 18 U/L (15-37) Alanine Aminotransferase (ALT) 29 U/L (16-63) Alkaline Phosphatase 62 U/L (46-116) Troponin I Quantitative < 0.017 ng/mL (0.000-0.055) WH-Kzk-Z-Type Natriuretic Peptide 41 pg/mL (0-124) Total Protein 7.1 g/dL (6.4-8.2) Albumin 3.3 g/dL (3.4-5.0) L Albumin/Globulin Ratio 0.9 (1.0-1.7) L Laboratory Tests 09/03/19 09:30 Laboratory Tests 09/03/19 10:00 EKG EKG EKG interpreted by me. EKG at 0911 showed normal sinus rhythm at rate of 91, complete right bundle branch block, nonspecific T abnormalities in. Leads, no acute ST and T-wave elevation. Radiology/Procedures Radiology/Procedures [][facility] [address] [place] [address] IMAGING REPORT Signed PATIENT: ARIA MCCRAY ACCOUNT: [id number] : 1950 LOCATION: ER AGE: 69 SEX: M EXAM STATUS: REG ER ORD. PHYSICIAN: TERRY VALDIVIA MD REASON: abnormal chest x-ray with new nodule PROCEDURE: CT CHEST W/CONTRAST PQRS Compliance statement: One or more of the following individualized dose reduction techniques were utilized for this examination: 1. Automated exposure control. 2. Adjustment of the mA and/or kV according to patient size. 3. Use of iterative reconstruction technique. Indication:Abnormal chest x-ray. New nodule. TECHNIQUE: CT chest with IV contrast with multiplanar reformats. COMPARISON: 10/06/2017. FINDINGS: Heart is normal in size. No pericardial or pleural effusion. No enlarged axillary, mediastinal or hilar adenopathy. Shotty mediastinal lymph nodes, nonspecific may be reactive. Central airways are patent. Wedge-shaped opacity seen in the posterior right lower lobe extending to the pleura approximately measuring 3.2 x 3.0 cm. Nonspecific patchy opacities are seen in this location on previous CT chest from 2017. Otherwise, lungs are clear. Visualized sections through the liver, spleen, pancreas, adrenals and visualized left kidney within normal limits. No suspicious bony lesion. IMPRESSION: Right lower lobe opacity as described above with interval change in morphology from previous study from 10/06/2017. Findings may be secondary to chronic mucous plugging , infection although slow-growing malignancy not ruled out. PET/CT recommended. Electronically signed by: Jonas Murphy DO (09/03/2019 11:19 AM) [facility] DICTATED and SIGNED BY: JONAS MURPHY DO DATE: 09/03/19 1119 Course & Med Decision Making Course & Med Decision Making Pertinent Labs and Imaging studies reviewed. (See chart for details) Evaluation of patient in ER showed 69-year-old male patient with history of asthma and complaining of increasing shortness of breath and productive cough si nce last night. Patient had O2 sat of 97% and wheezing that improved with Solu- Medrol and DuoNeb. Chest x-ray showed lung nodule and CT of chest showed stable lung nodule. Patient also had blood pressure of 197/115 without taking his blood pressure medication. Patient treated with oral clonidine with improvement of blood pressure to 159/91. Patient was advised to continue home medication and prescription for Medrol Dosepak was given. Patient was advised to avoid of exposure to smoking person at home. Dragon Disclaimer Dragon Disclaimer This electronic medical record was generated, in whole or in part, using a voice recognition dictation system. Departure Departure Impression: Primary Impression: Acute asthma exacerbation Additional Impressions: Lung nodule < 6cm on CT Anemia Hypertensive urgency Disposition: 01 HOME, SELF-CARE (at 1147) Condition: IMPROVED Referrals: AMINATA AYALA MD (PCP) Patient Instructions: Asthma Attacks, Prevention, Asthma, Adult Additional Instructions: Continue home nebulizer and inhaler Follow-up with your primary care physician in 3-5 days Return to ER if not getting better Scripts Methylprednisolone (MEDROL) 4 Mg Tab.ds.pk 1 PKG PO UD for inflammation, #1 PKG Prov: TERRY VALDIVIA MD 09/03/19 Problem Qualifiers Primary Impression: Acute asthma exacerbation Asthma severity: moderate Asthma persistence: unspecified Qualified Codes: J45.901 - Unspecified asthma with (acute) exacerbation Additional Impressions: Anemia Anemia type: unspecified type Qualified Codes: D64.9 - Anemia, unspecified TERRY VALDIVIA MD Sep 03, 2019 10:53
[2019-09-03] MEDS ORDERED: CONTRAST GIVEN. MC PRN (11:00)
--- NOTE | 2019-09-03 11:22 | RAD ---
PQRS Compliance statement: One or more of the following individualized dose reduction techniques were utilized for this examination: 1. Automated exposure control. 2. Adjustment of the mA and/or kV according to patient size. 3. Use of iterative reconstruction technique. Indication:Abnormal chest x-ray. New nodule. TECHNIQUE: CT chest with IV contrast with multiplanar reformats. COMPARISON: 10/06/2017. FINDINGS: Heart is normal in size. No pericardial or pleural effusion. No enlarged axillary, mediastinal or hilar adenopathy. Shotty mediastinal lymph nodes, nonspecific may be reactive. Central airways are patent. Wedge-shaped opacity seen in the posterior right lower lobe extending to the pleura approximately measuring 3.2 x 3.0 cm. Nonspecific patchy opacities are seen in this location on previous CT chest from 2017. Otherwise, lungs are clear. Visualized sections through the liver, spleen, pancreas, adrenals and visualized left kidney within normal limits. No suspicious bony lesion. IMPRESSION: Right lower lobe opacity as described above with interval change in morphology from previous study from 10/06/2017. Findings may be secondary to chronic mucous plugging , infection although slow-growing malignancy not ruled out. PET/CT recommended. Electronically signed by: Jonas Murphy DO (09/03/2019 11:19 AM) [facility]
[2019-09-03] MEDS ORDERED: METH4TAB2 PO (11:48)
[2019-09-03] MEDS ORDERED: cloNIDine HCL 0.1 MG TABLET PO ONE (12:00)
[2019-09-03 12:34] VITALS: BP 159/97
--- NOTE | 2019-09-04 11:30 | EKG ---
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
== END 2019-09-03 12:48 | disposition home or self-care (01) ==
LOC: ER 08:56
DX: J45.901 Unspecified asthma with (acute) exacerbation (principal); D64.9 Anemia, unspecified; R91.1 Solitary pulmonary nodule; I16.0 Hypertensive urgency; I25.10 Atherosclerotic heart disease of native coronary artery without angina pectoris; J44.9 Chronic obstructive pulmonary disease, unspecified; E11.9 Type 2 diabetes mellitus without complications; E78.00 Pure hypercholesterolemia, unspecified; Z95.5 Presence of coronary angioplasty implant and graft; Z96.659 Presence of unspecified artificial knee joint; Z77.22 Contact with and (suspected) exposure to environmental tobacco smoke (acute) (chronic); Z86.73 Personal history of transient ischemic attack (TIA), and cerebral infarction without residual deficits
CPT/HCPCS: 36415; 71046; 71260; 80053; 83880; 84484; 85025; 93005; 94640; 96374; 99285; J2930; J7620; Q9967

== ENCOUNTER 2019-09-24 07:04 | Emergency (ER) | payer OTHER ==
[~2019-09-24] VITALS: Ht 170.2 cm; Wt 99.8 kg
[~2019-09-24 07:04] MED LIST changes: +METH4TAB2 PO
[2019-09-24] MEDS ORDERED: IPRATRPIUM/ALBUTEROL 0.5/2.5MG 3 ML NEBU. NEB ONE ×2 (07:15→08:15)
[2019-09-24] MEDS ORDERED: methylPREDNISolone SOD SUCC PF 125 MG/2 ML VIAL. IV ONE (07:15)
--- NOTE | 2019-09-24 07:15 | PHYS DOC ---
Past Medical History Past Medical History: Asthma, CAD, COPD, CVA, Diabetes-Type II, High Cholesterol, Hypertension, Stroke, Other Additional Past Medical Histor: RIGHT SIDED RESIDUAL Past Surgical History: Angioplasty, Knee Replacement, Other Additional Past Surgical Histo: cardiac stents Alcohol Use: None Drug Use: None Adult General HPI HPI 69-year-old male presents to emergency department with complaints of shortness of breath. Patient's underlying history of asthma, hypertension, diabetes. He states his shortness of breath started yesterday, cough with clear sputum production. He denies any chest pain, nausea, vomiting, fever. Shortness of breath with exertion. Patient states he's been using his inhalers however no improvement. Review of Systems Review of Systems Constitutional: Denies fever or chills [] Respiratory: Cough, shortness of breath Cardiovascular: No additional information not addressed in HPI [] GI: Denies abdominal pain, nausea, vomiting, bloody stools or diarrhea [] Musculoskeletal: Denies back pain or joint pain [] Integument: Denies rash or skin lesions [] Neurologic: Denies headache, focal weakness or sensory changes [] All other systems were reviewed and found to be within normal limits, except as documented in this note. Current Medications Current Medications Current Medications Medications (Trade) Dose Ordered Sig/Jeannine Start Time Stop Time Status Last Admin Dose Admin Albuterol/ Ipratropium (Duoneb) 3 ml 1X ONCE 09/24/19 08:15 09/24/19 08:16 DC 09/24/19 08:04 3 ML Methylprednisolone Sodium Succinate (SOLU-Medrol 125MG VIAL) 125 mg 1X ONCE 09/24/19 07:15 09/24/19 07:16 DC 09/24/19 07:28 125 MG Allergies Allergies Allergies Coded Allergies Type Severity Reaction Last Updated Verified No Known Drug Allergies 11/10/18 No Physical Exam Physical Exam Constitutional: Well developed, well nourished, no acute distress, non-toxic appearance. [] HENT: Normocephalic, atraumatic, bilateral external ears normal, oropharynx moist, no oral exudates, nose normal. [] Eyes: PERRLA, EOMI, conjunctiva normal, no discharge. [] Cardiovascular:Heart rate regular rhythm, no murmur [] Lungs & Thorax: Decreased breath sounds, expiratory wheeze Abdomen: Bowel sounds normal, soft, no tenderness, no masses, no pulsatile masses. [] Skin: Warm, dry, no erythema, no rash. [] Extremities: No tenderness, no edema. [] Neurologic: Alert and oriented X 3, no focal deficits noted. [] Psychologic: Affect normal, judgement normal, mood normal. [] Current Patient Data Vital Signs Vital Signs Date Time Temp Pulse Resp B/P (MAP) Pulse Ox O2 Delivery O2 Flow Rate FiO2 09/24/19 08:04 97 Room Air 09/24/19 08:00 88 18 112/63 (79) 09/24/19 07:04 97.8 97.8 Lab Values Laboratory Tests Test 09/24/19 07:27 White Blood Count 9.9 x10^3/uL (4.0-11.0) Red Blood Count 4.65 x10^6/uL (4.30-5.70) Hemoglobin 12.3 g/dL (13.0-17.5) L Hematocrit 38.3 % (39.0-53.0) L Mean Corpuscular Volume 82 fL (79-100) Mean Corpuscular Hemoglobin 27 pg (25-35) Mean Corpuscular Hemoglobin Concent 32 g/dL (31-37) Red Cell Distribution Width 19.3 % (11.5-14.5) H Platelet Count 166 x10^3/uL (140-400) Neutrophils (%) (Auto) 73 % (31-73) Lymphocytes (%) (Auto) 15 % (24-48) L Monocytes (%) (Auto) 11 % (0-9) H Eosinophils (%) (Auto) 1 % (0-3) Basophils (%) (Auto) 1 % (0-3) Neutrophils # (Auto) 7.3 x10^3/uL (1.8-7.7) Lymphocytes # (Auto) 1.5 x10^3/uL (1.0-4.8) Monocytes # (Auto) 1.0 x10^3/uL (0.0-1.1) Eosinophils # (Auto) 0.1 x10^3/uL (0.0-0.7) Basophils # (Auto) 0.1 x10^3/uL (0.0-0.2) Prothrombin Time 23.7 SEC (11.7-14.0) H Prothrombin Time INR 2.1 (0.8-1.1) H Sodium Level 142 mmol/L (136-145) Potassium Level 4.3 mmol/L (3.5-5.1) Chloride Level 105 mmol/L (98-107) Carbon Dioxide Level 27 mmol/L (21-32) Anion Gap 10 (6-14) Blood Urea Nitrogen 21 mg/dL (8-26) Creatinine 1.2 mg/dL (0.7-1.3) Estimated GFR (Cockcroft-Gault) 73.1 BUN/Creatinine Ratio 18 (6-20) Glucose Level 96 mg/dL (70-99) Calcium Level 9.3 mg/dL (8.5-10.1) Total Bilirubin 1.2 mg/dL (0.2-1.0) H Aspartate Amino Transferase (AST) 38 U/L (15-37) H Alanine Aminotransferase (ALT) 83 U/L (16-63) H Alkaline Phosphatase 62 U/L (46-116) Troponin I Quantitative < 0.017 ng/mL (0.000-0.055) GX-Vyi-S-Type Natriuretic Peptide 196 pg/mL (0-124) H Total Protein 6.8 g/dL (6.4-8.2) Albumin 3.1 g/dL (3.4-5.0) L Albumin/Globulin Ratio 0.8 (1.0-1.7) L Laboratory Tests 09/24/19 07:27 Laboratory Tests 09/24/19 07:27 EKG EKG EKG reviewed, heart rate 87, normal sinus rhythm, there is evidence of delta wave appreciated with WPW pattern, normal axis.[] Interpretation Time: Interpretation time 0731 Radiology/Procedures Radiology/Procedures [facility] [address] [place] [address] IMAGING REPORT Signed PATIENT: ARIA MCCRAY ACCOUNT: [id number] : 1950 LOCATION: ER AGE: 69 SEX: M EXAM STATUS: PRE ER ORD. PHYSICIAN: CLARK ACEVEDO MD REASON: Shortness of Breath PROCEDURE: PORTABLE CHEST 1V PORTABLE CHEST 1V History: Shortness of breath Comparison: September 03, 2019 chest x-ray and CT. Findings: Decreased right midlung opacity. No pleural effusion. Normal heart size. No pneumothorax. Impression: 1. Decreased right midlung nodular opacity. Electronically signed by: Jori Barrera DO (09/24/2019 7:24 AM) [facility] DICTATED and SIGNED BY: JORI BARRERA DO DATE: 09/24/19 0724 [] Course & Med Decision Making Course & Med Decision Making Pertinent Labs and Imaging studies reviewed. (See chart for details) []69-year-old male presents to emergency department with complaints of shortness of breath. Patient's underlying history of asthma, hypertension, diabetes. He states his shortness of breath started yesterday, cough with clear sputum production. He denies any chest pain, nausea, vomiting, fever. Shortness of breath with exertion. Patient states he's been using his inhalers however no improvement. Labs/Imaging reviewed Patient received 2 duoneb tx, solumedrol 125 mg IV x 1 Reassessment s/p treatments with improved aeration - wheeze improved Patient states overall feels better Recommend dc home and follow up with PCP 3 - 5 days Medrol dose pack upon discharge Dragon Disclaimer Dragon Disclaimer This electronic medical record was generated, in whole or in part, using a voice recognition dictation system. Departure Departure Impression: Primary Impression: Acute asthma exacerbation Disposition: HOME, SELF-CARE Condition: IMPROVED Referrals: AMINATA AYALA MD (PCP) Patient Instructions: Asthma, Adult, [id number] Additional Instructions: Recommend follow up with PCP 3 - 5 days Return to the ER with worsening symptoms, intractable pain, fever, altered mental status Tylenol/Motrin as needed for pain Take new medications as prescribed (medrol dose jacinda) Scripts Methylprednisolone (MEDROL) 4 Mg Tab.ds.pk 1 PKG PO UD for inflammation, #1 PKG Prov: CLARK ACEVEDO MD 09/24/19 Problem Qualifiers Primary Impression: Acute asthma exacerbation Asthma severity: moderate Asthma persistence: unspecified Qualified Codes: J45.901 - Unspecified asthma with (acute) exacerbation CLARK ACEVEDO MD Sep 24, 2019 07:15
--- NOTE | 2019-09-24 07:27 | RAD ---
PORTABLE CHEST 1V History: Shortness of breath Comparison: September 03, 2019 chest x-ray and CT. Findings: Decreased right midlung opacity. No pleural effusion. Normal heart size. No pneumothorax. Impression: 1. Decreased right midlung nodular opacity. Electronically signed by: Jori Barrera DO (09/24/2019 7:24 AM) [facility]
[2019-09-24 07:33] LABS: BASO # 0.1 x10^3/uL (0.0-0.2); BASO % 1 % (0-3); EOS # 0.1 x10^3/uL (0.0-0.7); EOS % 1 % (0-3); HEMATOCRIT 38.3 % (39.0-53.0); HEMOGLOBIN 12.3 g/dL (13.0-17.5); LYMPH # 1.5 x10^3/uL (1.0-4.8); LYMPH % 15 % (24-48); MEAN CORPUSCULAR HEMOGLOBIN 27 pg (25-35); MEAN CORPUSCULAR HGB CONC 32 g/dL (31-37); MEAN CORPUSCULAR VOLUME 82 fL (79-100); MONO % 11 % (0-9); NEUT # 7.3 x10^3/uL (1.8-7.7); NEUT % 73 % (31-73); PLATELET COUNT 166 x10^3/uL (140-400); RED BLOOD COUNT 4.65 x10^6/uL (4.30-5.70); RED CELL DISTRIBUTION WIDTH 19.3 % (11.5-14.5); WHITE BLOOD COUNT 9.9 x10^3/uL (4.0-11.0)
[2019-09-24 07:39] LABS: CALCIUM 9.3 mg/dL (8.5-10.1); CREATININE 1.2 mg/dL (0.7-1.3); GFR 73.1; POTASSIUM 4.3 mmol/L (3.5-5.1)
[2019-09-24 07:45] LABS: ALBUMIN 3.1 g/dL (3.4-5.0); ALBUMIN/GLOBULIN RATIO 0.8 (1.0-1.7); TOTAL BILIRUBIN 1.2 mg/dL (0.2-1.0); TOTAL PROTEIN 6.8 g/dL (6.4-8.2)
[2019-09-24] MEDS ORDERED: METH4TAB2 PO (07:45)
[2019-09-24 07:53] LABS: PROTHROMBIN TIME PATIENT 23.7 SEC (11.7-14.0)
[2019-09-24 08:00] VITALS: BP 112/63
--- NOTE | 2019-09-25 13:36 | EKG ---
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
== END 2019-09-24 08:47 | disposition home or self-care (01) ==
LOC: ER 07:04
DX: J45.901 Unspecified asthma with (acute) exacerbation (principal); J44.9 Chronic obstructive pulmonary disease, unspecified; I25.10 Atherosclerotic heart disease of native coronary artery without angina pectoris; E78.00 Pure hypercholesterolemia, unspecified; I10 Essential (primary) hypertension; Z86.73 Personal history of transient ischemic attack (TIA), and cerebral infarction without residual deficits; Z95.5 Presence of coronary angioplasty implant and graft; Z96.659 Presence of unspecified artificial knee joint
CPT/HCPCS: 36415; 71045; 80053; 83880; 84484; 85025; 85610; 93005; 94640; 96374; 99285; J2930; J7620

== ENCOUNTER 2019-10-18 09:18 | Emergency (ER) | payer OTHER ==
[~2019-10-18] VITALS: Ht 170.2 cm; Wt 99.8 kg
[2019-10-18 09:56] LABS: BASO # 0.1 x10^3/uL (0.0-0.2); BASO % 1 % (0-3); EOS # 0.1 x10^3/uL (0.0-0.7); EOS % 1 % (0-3); HEMATOCRIT 38.9 % (39.0-53.0); HEMOGLOBIN 12.7 g/dL (13.0-17.5); LYMPH # 1.1 x10^3/uL (1.0-4.8); LYMPH % 16 % (24-48); MEAN CORPUSCULAR HEMOGLOBIN 27 pg (25-35); MEAN CORPUSCULAR HGB CONC 33 g/dL (31-37); MEAN CORPUSCULAR VOLUME 83 fL (79-100); MONO # 1.1 x10^3/uL (0.0-1.1); MONO % 16 % (0-9); NEUT # 4.6 x10^3/uL (1.8-7.7); NEUT % 66 % (31-73); PLATELET COUNT 162 x10^3/uL (140-400); RED BLOOD COUNT 4.68 x10^6/uL (4.30-5.70); RED CELL DISTRIBUTION WIDTH 20.4 % (11.5-14.5)
[2019-10-18] MEDS ORDERED: ONDANSETRON PF 4 MG/2 ML VIAL. IV ONE (10:00)
[2019-10-18] MEDS ORDERED: fentaNYL PF VIAL 100 MCG/2 ML VIAL IVP ONE (10:00)
[2019-10-18] MEDS ORDERED: FAMOTIDINE 20 MG/2 ML VIAL IVP ONE (10:00)
[2019-10-18] MEDS ORDERED: IV NORMAL SALINE 1000ML BAG 1,000 ML IV ONE (10:00)
--- NOTE | 2019-10-18 10:03 | PHYS DOC ---
Past Medical History Past Medical History: Asthma, CAD, COPD, CVA, Diabetes-Type II, High Cholesterol, Hypertension, Stroke, Other Additional Past Medical Histor: RIGHT SIDED RESIDUAL Past Surgical History: Angioplasty, Knee Replacement, Other Additional Past Surgical Histo: cardiac stents Additional Information: non-smoker Alcohol Use: None Drug Use: None Adult General Chief Complaint Chief Complaint: ABDOMINAL PAIN HPI HPI Patient is a 69 y/o male with a history of asthma, type 2 diabetes, acute renal failure, anemia, CVA w/ weakness 2004, CAD w/ 4-5 stents, HLD, and paroxysmal A- fib who presents to the ED with midline suprapubic abdominal pain that has been fluctuating for the past 2 days. He describes the pain as "achy" and is reproducible upon palpation. Reports associated vomiting and diarrhea. Denies taking any medications for relief or radiation of the pain. He denies any changes in medications recently. Patient says that it feels like his previous diverticulitis episode. Denies dysuria. Denies fever/chills. Denies known sick contacts. Review of Systems Review of Systems Constitutional: Denies fever or chills Eyes: Denies redness or eye pain HENT: Denies nasal congestion or sore throat Respiratory: Denies cough or shortness of breath Cardiovascular: Denies chest pain or palpitations GI: Reports lower abdominal pain, nausea, vomiting and diarrhea : Denies dysuria or hematuria Musculoskeletal: Denies back pain or joint pain Integument: Denies rash or skin lesions Neurologic: Denies headache, focal weakness or sensory changes Complete systems were reviewed and found to be within normal limits, except as documented in this note. Current Medications Current Medications Current Medications Medications (Trade) Dose Ordered Sig/Jeannine Start Time Stop Time Status Last Admin Dose Admin Ciprofloxacin (Cipro) 500 mg 1X ONCE 10/18/19 12:15 10/18/19 12:16 DC 10/18/19 12:13 500 MG Famotidine (Pepcid Vial) 20 mg 1X ONCE 10/18/19 10:00 10/18/19 10:01 DC 10/18/19 09:58 20 MG Fentanyl Citrate (Fentanyl 2ml Vial) 50 mcg 1X ONCE 10/18/19 10:00 10/18/19 10:01 DC 10/18/19 09:57 50 MCG Metronidazole (Flagyl) 500 mg 1X ONCE 10/18/19 12:15 10/18/19 12:16 DC 10/18/19 12:15 500 MG Ondansetron HCl (Zofran) 4 mg 1X ONCE 10/18/19 10:00 10/18/19 10:01 DC 10/18/19 09:56 4 MG Sodium Chloride 1,000 ml @ 1,000 mls/hr 1X ONCE 10/18/19 10:00 10/18/19 10:59 DC 10/18/19 09:55 1,000 MLS/HR Allergies Allergies Allergies Coded Allergies Type Severity Reaction Last Updated Verified No Known Drug Allergies 11/10/18 No Physical Exam Physical Exam Constitutional: Well developed, well nourished, no acute distress, non-toxic appearance HENT: Normocephalic, atraumatic, oropharynx moist Cardiovascular: Heart rate normal, regular rhythm Lungs & Thorax: Bilateral breath sounds clear to auscultation, no wheezing Abdomen: Soft, tenderness to palpation on suprapubic and LLQ region, umbilical hernia present which is reproducible, NO guarding/rebound tenderness Skin: Warm, dry, no erythema, no rash Back: No tenderness, no CVA tenderness Extremities: No tenderness, ROM intact, no edema Neurologic: Alert and oriented X 3, normal motor function, normal sensory function Psychologic: Affect normal, judgement normal, mood normal Current Patient Data Vital Signs Vital Signs Date Time Temp Pulse Resp B/P (MAP) Pulse Ox O2 Delivery O2 Flow Rate FiO2 10/18/19 12:04 78 16 107/60 (76) 97 Room Air 10/18/19 09:27 98.5 98.5 Lab Values Laboratory Tests Test 10/18/19 09:40 10/18/19 10:44 White Blood Count 7.0 x10^3/uL (4.0-11.0) Red Blood Count 4.68 x10^6/uL (4.30-5.70) Hemoglobin 12.7 g/dL (13.0-17.5) L Hematocrit 38.9 % (39.0-53.0) L Mean Corpuscular Volume 83 fL (79-100) Mean Corpuscular Hemoglobin 27 pg (25-35) Mean Corpuscular Hemoglobin Concent 33 g/dL (31-37) Red Cell Distribution Width 20.4 % (11.5-14.5) H Platelet Count 162 x10^3/uL (140-400) Neutrophils (%) (Auto) 66 % (31-73) Lymphocytes (%) (Auto) 16 % (24-48) L Monocytes (%) (Auto) 16 % (0-9) H Eosinophils (%) (Auto) 1 % (0-3) Basophils (%) (Auto) 1 % (0-3) Neutrophils # (Auto) 4.6 x10^3/uL (1.8-7.7) Lymphocytes # (Auto) 1.1 x10^3/uL (1.0-4.8) Monocytes # (Auto) 1.1 x10^3/uL (0.0-1.1) Eosinophils # (Auto) 0.1 x10^3/uL (0.0-0.7) Basophils # (Auto) 0.1 x10^3/uL (0.0-0.2) Platelet Estimate Adequate (ADEQUATE) Poikilocytosis Mod Anisocytosis Mod Acanthocytes (Spur Cells) Mod Prothrombin Time 20.1 SEC (11.7-14.0) H Prothrombin Time INR 1.7 (0.8-1.1) H Activated Partial Thromboplast Time 43 SEC (24-38) H Sodium Level 138 mmol/L (136-145) Potassium Level 4.1 mmol/L (3.5-5.1) Chloride Level 101 mmol/L (98-107) Carbon Dioxide Level 28 mmol/L (21-32) Anion Gap 9 (6-14) Blood Urea Nitrogen 10 mg/dL (8-26) Creatinine 1.1 mg/dL (0.7-1.3) Estimated GFR (Cockcroft-Gault) 80.8 BUN/Creatinine Ratio 9 (6-20) Glucose Level 98 mg/dL (70-99) Calcium Level 9.3 mg/dL (8.5-10.1) Total Bilirubin 1.8 mg/dL (0.2-1.0) H Aspartate Amino Transferase (AST) 15 U/L (15-37) Alanine Aminotransferase (ALT) 44 U/L (16-63) Alkaline Phosphatase 57 U/L (46-116) Total Protein 7.4 g/dL (6.4-8.2) Albumin 3.1 g/dL (3.4-5.0) L Albumin/Globulin Ratio 0.7 (1.0-1.7) L Lipase 96 U/L (73-393) Urine Collection Type Unknown Urine Color Yellow Urine Clarity Clear Urine pH 7.5 Urine Specific [place] 1.020 Urine Protein 30 mg/dL (NEG-TRACE) Urine Glucose (UA) Negative mg/dL (NEG) Urine Ketones (Stick) Negative mg/dL (NEG) Urine Blood Negative (NEG) Urine Nitrite Negative (NEG) Urine Bilirubin Negative (NEG) Urine Urobilinogen Dipstick 1.0 mg/dL (0.2 mg/dL) Urine Leukocyte Esterase Negative (NEG) Urine RBC 1-2 /HPF (0-2) Urine WBC 1-4 /HPF (0-4) Urine Squamous Epithelial Cells Few /LPF Urine Bacteria Few /HPF (0-FEW) Urine Mucus Marked /LPF Laboratory Tests 10/18/19 09:40 Laboratory Tests 10/18/19 09:40 EKG EKG [] Radiology/Procedures Radiology/Procedures PROCEDURE: CT ABDOMEN PELVIS WO CONTRAST EXAM: CT ABDOMEN/PELVIS WITHOUT CONTRAST. HISTORY: Lower abdominal pain. TECHNIQUE: Computed tomography of the abdomen and pelvis was performed without intravenous contrast. COMPARISON: 03/02/2018. FINDINGS: Lung windows through the visualized portions of the bases reveal left greater than right basilar atelectasis or scarring. The left hemidiaphragm is mildly elevated. Aortic valve and coronary calcifications are noted. Bone windows reveal no suspicious lesions. There is a small hiatal hernia. A right lower pole renal cyst measures 2.7 cm. The liver, gallbladder, pancreas, adrenal glands and spleen are unremarkable without contrast. There are no pathologically enlarged lymph nodes. Stranding about the sigmoid colon is consistent with mild diverticulitis. A relatively large diverticulum measures 2.3 cm. There is no drainable collection. The appendix is not inflamed. There is no small bowel obstruction. A moderate umbilical hernia contains only fat. The prostate is mildly enlarged at 4.0 cm. Bladder wall thickening is nonfocal. IMPRESSION: 1. Mild acute sigmoid diverticulitis. No drainable collection. 2. Moderate umbilical hernia containing only fat. Small hiatal hernia. 3. Diffuse bladder wall thickening indicates chronic outlet obstruction or inflammation. Correlate with urinalysis. *One or more of the following individualized dose reduction techniques were utilized for this examination: 1. Automated exposure control. 2. Adjustment of the mA and/or kV according to patient size. 3. Use of iterative reconstruction technique. Electronically signed by: Milagro Yap MD (10/18/2019 11:35 AM) [facility] Course & Med Decision Making Course & Med Decision Making Pt is a 69 y/o male with a history of CVA, CAD w/ 4 stents, paroxysmal a-fib, type 2 diabetes who presents with suprapubic abdominal pain with associated n ausea and vomiting. Pt states that pain is similar to his previous diverticulitis episode and pain is reproducible upon palpation. CT abdomen confirmed early diverticulitis; Labs obtained and posted to chart. Symptomatic treatment provided with interval improvement. Empiric antibiotics given. Patient stable for discharge with outpatient follow-up with PCP/GI. Discussed findings and plan with patient and family, who acknowledge understanding and agreement. Dragon Disclaimer Dragon Disclaimer This electronic medical record was generated, in whole or in part, using a voice recognition dictation system. Departure Departure Impression: Primary Impression: Diverticulitis Disposition: HOME, SELF-CARE Condition: STABLE Referrals: AMINATA AYALA MD (PCP) PAPI CORTES MD Patient Instructions: Diverticulitis, Doej-vu-Giwm Scripts Hydrocodone/Apap 5-325 (NORCO 5-325 TABLET) 1 Each Tablet 0.5-1 TAB PO PRN Q6HRS PRN for PAIN, #10 TAB 0 Refills Prov: SALAZAR VALDES DO 10/18/19 Ondansetron (ONDANSETRON ODT) 4 Mg Tab.rapdis 1 TAB PO PRN Q6-8HRS PRN for NAUSEA, #16 TAB Prov: SALAZAR VALDES DO 10/18/19 Metronidazole (FLAGYL) 500 Mg Tablet 500 MG PO TID for 7 Days, #21 TAB Prov: SALAZAR VALDES DO 10/18/19 Ciprofloxacin Hcl (CIPRO) 500 Mg Tablet 1 TAB PO BID for 7 Days, #14 TAB Prov: SALAZAR VALDES DO 10/18/19 SALAZAR VALDES DO Oct 18, 2019 10:03
[2019-10-18 10:06] LABS: CALCIUM 9.3 mg/dL (8.5-10.1); CREATININE 1.1 mg/dL (0.7-1.3); GFR 80.8; POTASSIUM 4.1 mmol/L (3.5-5.1)
[2019-10-18 10:19] LABS: ALBUMIN 3.1 g/dL (3.4-5.0); ALBUMIN/GLOBULIN RATIO 0.7 (1.0-1.7); TOTAL BILIRUBIN 1.8 mg/dL (0.2-1.0); TOTAL PROTEIN 7.4 g/dL (6.4-8.2)
[2019-10-18 10:20] LABS: PROTHROMBIN TIME PATIENT 20.1 SEC (11.7-14.0)
[2019-10-18 10:51] LABS: PLT ESTIMATE ADEQUATE (ADEQUATE)
[2019-10-18 10:52] LABS: ACANTHOCYTES MOD; ANISOCYTOSIS MOD
[2019-10-18 10:53] LABS: POIKILOCYTOSIS MOD
[2019-10-18 10:57] LABS: BILIRUBIN,URINE NEGATIVE (NEG); CLARITY,URINE CLEAR; COLOR,URINE YELLOW; NITRITE,URINE NEGATIVE (NEG); PH,URINE 7.5; PROTEIN,URINE 30 mg/dL (NEG-TRACE)
[2019-10-18 11:09] LABS: BACTERIA,URINE FEW /HPF (0-FEW); SQUAMOUS EPITHELIAL CELL,UR FEW /LPF
--- NOTE | 2019-10-18 11:39 | RAD ---
EXAM: CT ABDOMEN/PELVIS WITHOUT CONTRAST. HISTORY: Lower abdominal pain. TECHNIQUE: Computed tomography of the abdomen and pelvis was performed without intravenous contrast. COMPARISON: 03/02/2018. FINDINGS: Lung windows through the visualized portions of the bases reveal left greater than right basilar atelectasis or scarring. The left hemidiaphragm is mildly elevated. Aortic valve and coronary calcifications are noted. Bone windows reveal no suspicious lesions. There is a small hiatal hernia. A right lower pole renal cyst measures 2.7 cm. The liver, gallbladder, pancreas, adrenal glands and spleen are unremarkable without contrast. There are no pathologically enlarged lymph nodes. Stranding about the sigmoid colon is consistent with mild diverticulitis. A relatively large diverticulum measures 2.3 cm. There is no drainable collection. The appendix is not inflamed. There is no small bowel obstruction. A moderate umbilical hernia contains only fat. The prostate is mildly enlarged at 4.0 cm. Bladder wall thickening is nonfocal. IMPRESSION: 1. Mild acute sigmoid diverticulitis. No drainable collection. 2. Moderate umbilical hernia containing only fat. Small hiatal hernia. 3. Diffuse bladder wall thickening indicates chronic outlet obstruction or inflammation. Correlate with urinalysis. *One or more of the following individualized dose reduction techniques were utilized for this examination: 1. Automated exposure control. 2. Adjustment of the mA and/or kV according to patient size. 3. Use of iterative reconstruction technique. Electronically signed by: Milagro Yap MD (10/18/2019 11:35 AM) [facility]
[2019-10-18] MEDS ORDERED: METR500T PO (12:00)
[2019-10-18] MEDS ORDERED: CIPR500T94 PO (12:00)
[2019-10-18] MEDS ORDERED: ONDA4TAB12 PO (12:00)
[2019-10-18] MEDS ORDERED: HYDR-3164 PO (12:00)
[2019-10-18 12:04] VITALS: BP 107/60
[2019-10-18] MEDS ORDERED: metroNIDAZOLE 500 MG TABLET PO ONE (12:15)
[2019-10-18] MEDS ORDERED: CIPROFLOXACIN HCL 250 MG TABLET. PO ONE (12:15)
== END 2019-10-18 12:20 | disposition home or self-care (01) ==
LOC: ER 09:18
DX: K57.92 Diverticulitis of intestine, part unspecified, without perforation or abscess without bleeding (principal); R19.7 Diarrhea, unspecified; J44.9 Chronic obstructive pulmonary disease, unspecified; I25.10 Atherosclerotic heart disease of native coronary artery without angina pectoris; Z86.73 Personal history of transient ischemic attack (TIA), and cerebral infarction without residual deficits; E11.9 Type 2 diabetes mellitus without complications; E78.00 Pure hypercholesterolemia, unspecified; I48.91 Unspecified atrial fibrillation; I10 Essential (primary) hypertension; Z95.5 Presence of coronary angioplasty implant and graft
CPT/HCPCS: 36415; 74176; 80053; 81001; 83690; 85025; 85610; 85730; 96361; 96374; 96375; 99285; J2405; J3010; J3490; J7030

== ENCOUNTER 2020-01-09 11:08 | Emergency (ER) | payer MEDICARE, OTHER ==
[~2020-01-09] VITALS: Ht 170.2 cm; Wt 100.0 kg
[~2020-01-09 11:08] MED LIST changes: +CIPR500T94 PO; +HYDR-2761 PO; +HYDR-3164 PO; +METR500T PO; +ONDA-84 PO; -ONDA4TAB11 PO; +ONDA4TAB12 PO; +PENI500T PO
[2020-01-09 11:55] VITALS: BP 145/76
--- NOTE | 2020-01-09 11:58 | PHYS DOC ---
Past Medical History Past Medical History: A-Fib, Asthma, CAD, COPD, CVA, Diabetes-Type II, High Cholesterol, Hypertension, Stroke, Other Additional Past Medical Histor: RIGHT SIDED RESIDUAL Past Surgical History: Angioplasty, Knee Replacement, Other Additional Past Surgical Histo: cardiac stents Smoking Status: Never Smoker Alcohol Use: None Drug Use: None Adult General Chief Complaint Chief Complaint: ASTHMA HPI HPI Patient is a 69 year old male who presents with complaint of wheezing 6 days duration. He has a history of asthma and saw his primary care physician 5 days ago where he was given a prescription for a prednisone taper. He has been using albuterol nebulizer at home without relief. No fever or chills. He reports increased cough. Review of Systems Review of Systems All other ROS is negative unless otherwise stated in HPI Current Medications Current Medications Current Medications Medications (Trade) Dose Ordered Sig/Jeannine Start Time Stop Time Status Last Admin Dose Admin Albuterol/ Ipratropium (Duoneb) 3 ml 1X ONCE 01/09/20 12:00 01/09/20 12:01 DC 01/09/20 12:22 3 ML Allergies Allergies Allergies Coded Allergies Type Severity Reaction Last Updated Verified No Known Drug Allergies 11/10/18 No Physical Exam Physical Exam See above Constitutional: Well developed, well nourished, no acute distress, non-toxic appearance. [] HENT: Normocephalic, atraumatic, bilateral external ears normal, oropharynx moist, no oral exudates, nose normal. [] Eyes: PERRLA, EOMI, conjunctiva normal, no discharge. [] Neck: Normal range of motion, no tenderness, supple, no stridor. [] Cardiovascular:Heart rate regular rhythm, no murmur [] Lungs & Thorax: Decreased air movement throughout with scattered on the moderate wheezing Abdomen: Bowel sounds normal, soft, no tenderness, no masses, no pulsatile masses. [] Skin: Warm, dry, no erythema, no rash. [] Back: No tenderness, no CVA tenderness. [] Extremities: No tenderness, no cyanosis, no clubbing, ROM intact, no edema. [] Neurologic: Alert and oriented X 3, normal motor function, normal sensory function, no focal deficits noted. [] Psychologic: Affect normal, judgement normal, mood normal. [] Current Patient Data Vital Signs Vital Signs Date Time Temp Pulse Resp B/P (MAP) Pulse Ox O2 Delivery O2 Flow Rate FiO2 01/09/20 11:55 97.7 75 20 145/76 (99) 97 Room Air 97.7 EKG EKG [] Radiology/Procedures Radiology/Procedures CHEST PA LATERAL Clinical indications: Wheezing and asthma problems for one week. COMPARISON: September 24, 2019. Findings: Hyperinflation is seen consistent with COPD. There is a new small anterior left lower lobe lung infiltrate. The right lung field is clear. No pleural effusion or pneumothorax is seen. The heart size, pulmonary vasculature, mediastinum and both emani are unremarkable. The osseous structures appear intact. Impression: New left lower lobe lung infiltrate. Electronically signed by: Rajesh Devlin MD (01/09/2020 12:12 PM) [facility][] Course & Med Decision Making Course & Med Decision Making Pertinent Labs and Imaging studies reviewed. (See chart for details) Patient seen for shortness of breath/wheezing with history of asthma. We'll start with chest x-ray and DuoNeb breathing treatment. His oxygen saturation is 97% on room air. 1226: Patient's chest x-ray reveals the presence of the left lower lobe infil trate. He has been given albuterol breathing treatment. He'll be discharged home with antibiotics and instructed to follow-up in 2-3 days for reevaluation. Dragon Disclaimer Dragon Disclaimer This electronic medical record was generated, in whole or in part, using a voice recognition dictation system. Departure Departure Impression: Primary Impression: Community acquired pneumonia Additional Impression: Asthma Disposition: 01 HOME, SELF-CARE Condition: STABLE Referrals: AMINATA AYALA MD (PCP) Please follow up in 2-3 days for reevalution. Patient Instructions: Pneumonia, Adult Additional Instructions: Please continue taking your prednisone as instructed. Return to the ER for worsening symptoms Scripts Levofloxacin (LEVAQUIN) 500 Mg Tablet 1 TAB PO DAILY for 10 Days, #10 TAB 0 Refills Prov: JODI HEALY DO 01/09/20 Problem Qualifiers JODI HEALY DO Jan 09, 2020 11:58
--- NOTE | 2020-01-09 12:15 | RAD ---
CHEST PA LATERAL Clinical indications: Wheezing and asthma problems for one week. COMPARISON: September 24, 2019. Findings: Hyperinflation is seen consistent with COPD. There is a new small anterior left lower lobe lung infiltrate. The right lung field is clear. No pleural effusion or pneumothorax is seen. The heart size, pulmonary vasculature, mediastinum and both emani are unremarkable. The osseous structures appear intact. Impression: New left lower lobe lung infiltrate. Electronically signed by: Rajesh Devlin MD (01/09/2020 12:12 PM) [facility]
[2020-01-09] MEDS: IPRATRPIUM/ALBUTEROL 0.5/2.5MG 3 ML NEBU. NEB ONE (12:22)
[2020-01-09] MEDS ORDERED: LEVO500T59 PO (12:35)
== END 2020-01-09 12:40 | disposition home or self-care (01) ==
LOC: ER 11:08
DX: J18.9 Pneumonia, unspecified organism (principal); J44.9 Chronic obstructive pulmonary disease, unspecified; I48.91 Unspecified atrial fibrillation; E11.9 Type 2 diabetes mellitus without complications; E78.00 Pure hypercholesterolemia, unspecified; I10 Essential (primary) hypertension; Z86.73 Personal history of transient ischemic attack (TIA), and cerebral infarction without residual deficits; I25.10 Atherosclerotic heart disease of native coronary artery without angina pectoris; Z95.5 Presence of coronary angioplasty implant and graft
CPT/HCPCS: 71046; 99283; J7620

== ENCOUNTER → 2021-08-20 | Outpatient (CLI) | payer MEDICARE ==
[2020-07-27 11:00] VITALS: BP 148/76
[~2021-08-20] MED LIST changes: +AMOX1TAB61 PO; -ISOS60TA2 PO; +ISOS60TA55 PO; +LEVO500T59 PO; -LISI-334 PO; +LISI-517 PO; -LISI2.5T PO; +LISI2.5T12 PO; +LISI20TA18 PO; -OMEP40CA45 PO; +OMEP40CA7 PO; -WARF-78 PO; +WARF2.5T2 PO; -WARF2.5T83 PO; +WARF5TAB2 PO
--- NOTE | 2021-08-20 14:00 | RAD ---
EXAM: Lumbar spine MRI without contrast. HISTORY: Arthritis. TECHNIQUE: Multiplanar, multisequence magnetic resonance imaging of the lumbar spine was performed wi thout contrast. COMPARISON: Radiographs dated 05/01/2021. FINDINGS: There is a transitional lumbosacral segment. This is considered a partially lumbarized S1 s egment with rudimentary S1-S2 disc. There is mild scoliosis. There is degenerative endplate remodelin g predominantly at L5-S1. There is no suspicious osseous lesion. There is no acute or subacute fractu re. The conus terminates at L1-L2. There is a 2.8 cm simple cyst within the lower pole the right kidn ey. Follow-up is not routinely performed for simple cysts. At L1-L2, there is a disc bulge and anterior predominant endplate remodeling. There is no stenosis. At L2-L3, there is endplate remodeling. There is no stenosis. At L3-L4, there is a disc bulge and endplate osteophytosis. There is mild left greater than right fac et arthropathy. There is mild left foraminal stenosis. There is mild central canal stenosis. At L4-L5, there is a mild disc bulge and endplate remodeling. There is mild bilateral facet arthropat hy. There is mild left foraminal stenosis. At L5-S1, there is a posterior central disc protrusion and annular tear and there are bilateral anmol inal to extra foraminal disc protrusion superimposed on a disc bulge and endplate osteophytosis. Ther e is mild right greater than left facet arthropathy. There is moderate right and mild to moderate lef t foraminal stenosis with abutment of the exiting right greater than left L5 nerve roots. There is sl ight narrowing of the right lateral recess. IMPRESSION: 1. Degenerative change involving the lumbar spine, described in detail above. This is associated with mild left foraminal and central canal stenosis at L3-L4, mild left foraminal stenosis at L4-L5, and moderate right and mild to moderate left foraminal stenosis and narrowing of the right lateral recess at L5-S1. 2. Transitional lumbosacral segment, a normal variant. This considered S1 for this dictation. Electronically signed by: Shasta King MD (08/20/2021 12:02 PM) [facility]
== END ==
LOC: MRI 11:05
PROVIDERS: ATTEND Family Medicine
DX: M47.817 Spondylosis without myelopathy or radiculopathy, lumbosacral region (principal); M51.27 Other intervertebral disc displacement, lumbosacral region; M48.07 Spinal stenosis, lumbosacral region; N28.1 Cyst of kidney, acquired
CPT/HCPCS: 72148

== ENCOUNTER → 2021-09-19 | Outpatient (CLI) | payer MEDICARE ==
[2020-07-27 11:00] VITALS: BP 148/76
[~2021-09-19] MED LIST changes: +CLOP75TA PO
--- NOTE | 2021-09-19 12:26 | PDOC1 ---
INITIAL PAIN CONSULT DATE OF SERVICE: DOS: DATE: 09/19/21 TIME: 12:20 CHIEF COMPLAINT: Chief Complaint: Low back and left lower extremity pain HISTORY OF PRESENT ILLNESS: 71-year-old male presents with history of pain low back and left lower extremity for about 2 months on and off over the years but worse over the past 2 months with the pain is becoming more consistent and persistent patient reports is acro ss the low back worse on the left side but across the right and left low back rating the left lower extremity posterior gluteus posterior lateral thigh posterior calf worse with walking standing changing positions better with sitting or laying down but does awaken from sleep least once or twice at night patient reports it does not affect his bowel bladder control and can affect his go to walk but he is limiting his walking recently because of the pain. Patient not use any assistive devices to ambulate is just been holding onto rails and items to help him balance. Patient reports some fatigability with the left leg with standing and walking but no loss of motor function completely. Patient reports has been doing physical therapy exercises and stretching and strengthening on his own as well but is not decreasing the pain significantly patient reports he is taking prior to strength Tylenol as well as hydrocodone neither of which are decreasing the pain to a significant amount. Patient did have an MRI scan of the lumbar spine showing degenerative changes at the L5-S1 and L4-5 levels L5-S1 showing a central disc protrusion and annular tear with bilateral foraminal to extraforaminal disc protrusion superimposed on disc bulge and endplate osteophytosis there is some moderate right and mild to moderate left foraminal stenosis with abutment of the exiting right greater than left L5 nerve roots. 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 Patient reports no bowel or bladder incontinence. PAST MEDICAL HISTORY: PMH: Hypertension, coronary artery disease, arthritis PREVIOUS SURGERIES: Past Surgical Hx: Right total knee replacement 2012, heart stent placements CURRENT MEDICATIONS: Current Meds: Active Scripts Medications Dose Route/Sig Max Daily Dose Days Date Category Dose Instructions Clopidogrel (Clopidogrel Bisulfate) 75 Mg Tablet 1 Tab PO DAILY 09/19/21 Reported Culturelle (Lactobacillus Rhamnosus Gg) 1 Each Cap.sprink 1 Cap PO BID 30 07/27/20 Rx Lisinopril 5 Mg Tablet 5 Mg PO BID 30 07/27/20 Rx Dulera 200 Mcg/5 Mcg Inhaler (Mometasone/Formoterol) 13 Gm Hfa.aer.ad 2 Puff IH BID 11/10/18 Rx Omeprazole 40 Mg Capsule.dr 1 Cap PO DAILY 11/10/18 Rx Spiriva (Tiotropium [place]) 18 Mcg Cap.w.dev 1 Cap IH DAILY 11/10/18 Rx Requip (Ropinirole Hcl) 0.5 Mg Tablet 1 Tab PO QHS 11/10/18 Rx Proair Hfa Inhaler (Albuterol Sulfate) 8.5 Gm Hfa.aer.ad 1 Puff INH PRN Q6HRS PRN 02/19/18 Reported Warfarin Sodium 3 Mg Tablet 1 Tab PO DAILY 10/08/17 Rx Carvedilol (Carvedilol) 6.25 Mg Tablet 6.25 Mg PO BIDWMEALS 04/10/16 Rx Metformin Hcl 1,000 Mg Tablet 500 Mg PO DAILYWBKFT 04/10/16 Rx do not start until tomorrow Isosorbide Mononitrate Er (Isosorbide Mononitrate) 60 Mg Tab.er.24h 1 Tab PO DAILY 04/09/16 Reported Singulair Tablet (Montelukast Sodium) 10 Mg Tablet 1 Tab PO DAILY 04/09/16 Reported Nasonex (Mometasone Furoate) 17 Gm [place].pump 2 [place] NS DAILY 04/09/16 Reported Atorvastatin Calcium 80 Mg Tablet 1 Tab PO DAILY 04/09/16 Reported ALLERGIES; Allergies: Coded Allergies: No Known Drug Allergies (Unverified , 11/10/18) FAMILY HISTORY: Family Hx: Hypertension, diabetes SOCIAL HISTORY: Social Hx: Patient is under alcohol does not smoke says any illegal illicit recreational drugs is lives with his spouse lives locally in [facility] and is currently retired. REVIEW OF SYSTEMS: ROS: Positive for those items mentioned in history of present illness, all systems are reviewed, otherwise negative ,and are complete full and well-documented on patient's chart. PHYSICAL EXAM: VS: Blood pressure is 143/79 pulse 70 respirations 18 temperature 98.1 F height is 5 feet 7 inches weight is 218 pounds PE: PHYSICAL EXAMINATION: GENERAL: The patient is awake, alert, oriented, appropriate, very pleasant in demeanor HEENT: Shows normocephalic, atraumatic. Extraocular movements are intact and symmetrical. Oral cavity: Mucous membranes moist and pink. NECK: Shows anterior throat supple without palpable lymphadenopathy noted. Swallow reflex symmetrical. CHEST: Shows normal on inspection. Breath sounds are clear bilaterally, no rales rhonchi wheezes auscultated. HEART: Shows S1, S2 clear. No murmurs auscultated. ABDOMEN: Soft, nontender, nondistended, obese. No palpable organomegaly is noted. No rebound or guarding demonstrated. BACK: Shows spine grossly in the midline. Normal-appearing cervical lordotic curvature. There is slightly increased thoracic kyphosis, some minor flattening of the lumbar lordotic curvature. Lumbar paraspinous muscles show symmetrical on inspection, on palpation shows some moderate tenderness diffusely throughout the upper, middle and lower distribution of the paraspinous muscles bilaterally and also into the lower thoracic paraspinous musculature, firm and tender, but without specific trigger points, without radiation of pain. The patient has good rotational motion of the lumbar spine, both laterally as well as extension and flexion without significant difficulty. No tenderness over the spinous processes, sacrum or sacroiliac regions. EXTREMITIES: Lower extremities show deep tendon reflexes 1+ in the patellar and tendo calcaneus tendons. Motor exam is 5 on a scale of 5 with right dorsiflexion, extension, quadriceps and hamstring flexion and 4/5 on the left. Peripheral pulses are 1 posterior tibial. No peripheral edema is noted bilaterally. Lower extremities are warm and dry to touch, equal in color and appearance. Straight leg raise noted to be positive on the left at approximate 40 degrees decreased with knee flexion, right side is negative. Gaenslen's and Vito's maneuvers are negative bilaterally. The patient is able to stand, has difficulty standing from a seated position and uses the arms of the chair to help him up once he is up he does have a significant favoring gait favoring the left lower extremity and walking with a slight limp although not use any assistive devices to ambulate. SKIN: Shows warm and dry, good turgor. No edema. No sores, rashes or bruising throughout. IMPRESSION: Impression: 71-year-old male with 2-month history increasing pain low back left lower extremity radicular fashion. MRI scan lumbar spine as noted Arthritis Hypertension Coronary artery disease Plan: Options were discussed with the patient including conservative medical management continued physical therapies and exercises and interventional techniques. As patient is been doing exercises and stretching strengthening as well as oral analgesics without significant reduction in pain, he would like to pursue interventional techniques. We discussed a lumbar epidural steroid injections description as well as anatomical models to describe the procedure. 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 Once deemed safe and appropriate we will have him hold these with labs pending and plan on lumbar epidural steroid injection L5-S1 level with fluoroscopic guidance. ALLI WRIGHT MD Sep 19, 2021 12:26
== END | disposition home or self-care (01) ==
LOC: PNCL 10:01
PROVIDERS: ATTEND Anesthesiology
DX: M54.59 Other low back pain (principal); M79.605 Pain in left leg; I25.10 Atherosclerotic heart disease of native coronary artery without angina pectoris; I10 Essential (primary) hypertension; M19.90 Unspecified osteoarthritis, unspecified site; I48.91 Unspecified atrial fibrillation; J45.909 Unspecified asthma, uncomplicated; E66.9 Obesity, unspecified; K21.9 Gastro-esophageal reflux disease without esophagitis; E11.9 Type 2 diabetes mellitus without complications; N40.0 Benign prostatic hyperplasia without lower urinary tract symptoms; M10.9 Gout, unspecified; Z87.440 Personal history of urinary (tract) infections; Z79.84 Long term (current) use of oral hypoglycemic drugs; Z79.899 Other long term (current) drug therapy; Z98.890 Other specified postprocedural states
CPT/HCPCS: G0463